=== PATIENT | male | born 1955 | race Caucasian/White ===

== ENCOUNTER → 2016-11-02 | Outpatient (CLI) | payer OTHER ==
[~2016-11-02] MED LIST: HYDR-3419 PO; NAPR1TAB9 PO
--- NOTE | 2016-11-02 11:11 | DIAGNOSTIC IMAGING REPORT ---
PET/CT HISTORY: Colorectal carcinoma. COLORECTAL CANCER TECHNIQUE: PET/CT was performed from the base of the skull through the pelvis following the intravenous administration of 14.1 mCi of F18-FDG. Non-contrast CT imaging was performed over the same range without breath-hold for attenuation correction of PET images and anatomic correlation, but not for primary interpretation as it is not of standard diagnostic quality. CT DOSE: COMPARISON: CT dated 09/21/2016. FINDINGS: HEAD AND NECK: There is no FDG-avid disease or significant lymphadenopathy in the imaged portions of the head and the neck. CHEST: There is no FDG-avid disease in the chest. There is no axillary, mediastinal, or hilar lymphadenopathy. There is no pleural or pericardial effusion. There is no air-space disease or suspicious lung nodule. ABDOMEN/PELVIS: Patient is status post left nephrectomy. In its place is a complex fluid/air pocket measuring 6.9 x 6.0 cm. This is slightly increased in the patient's prior CT exam. Demonstrated increase in peripheral metabolic activity characteristics with a right hand with SUVs extending to 5.5. Possibility of an abscess must be considered. Unremarkable activity characteristics are identified within the liver. Bowel activity is unremarkable. Right renal activity is noted. Postoperative foci of increased activity in the periumbilical region considered to be on a postoperative basis. Bowel pattern shows unremarkable activity characteristics. There is no significant abdominal pelvic or inguinal adenopathy. There is physiologic activity within the urinary bladder. MUSCULOSKELETAL: There is no FDG-avid or destructive bone lesion. IMPRESSION: 1. Peripheral metabolically active collection at the site of the patient's prior left nephrectomy bed. 2. Currently demonstrates anterior component, as well as increased peripheral metabolic activity suggestive of potential abscess. 3. Study otherwise is negative Electronically signed by: Percy Cardenas M.D. 11/02/2016 11:10 AM Dictated Date/Time: 11/02/2016 10:47 AM
== END | disposition home or self-care (01) ==
LOC: C.PET 07:43
PROVIDERS: ATTEND Internal Medicine Hematology & Oncology
DX: C18.9 Malignant neoplasm of colon, unspecified (principal); R93.5 Abnormal findings on diagnostic imaging of other abdominal regions, including retroperitoneum

== ENCOUNTER → 2016-11-03 | Day surgery (SDC) | payer OTHER ==
[2016-10-29 14:47] VITALS: BMI 27.0
[~2016-11-03] VITALS: Ht 175.3 cm; Wt 84.5 kg
[~2016-11-03] MED LIST changes: +ATROPINE SULFATE 0.1 MG/ML 5ML SYR IV PRN; +BACITRACIN 50000 UNIT VIAL ONE; +CEFAZOLIN SOD 1 GM VIAL ONE; +FENTANYL CITRATE INJ 50 MCG/1 ML 2 ML VIAL IV PRN; +FENTANYL CITRATE INJ 50 MCG/1 ML 2 ML VIAL ONE; +HYDROCODONE/ACETAMOPHEN 5/325MG TAB PO PRN; +KETAMINE HCL INJ 50 MG/ML 10 ML VIAL ONE; +LACTATED RINGER'S 1000ML 1,000 ML IV SCH; +LIDOCAINE HCL 1% 20 ML VIAL ONE; +LIDOCAINE HCL 2% 2 ML VIAL (20MG/ML) ONE; +MIDAZOLAM HCL 1 MG/ML 2ML VIAL ONE; +MoRPHine SULFATE 2 MG/ML CARP IV PRN; +ONDANSETRON INJ 2 MG/ML 2 ML VIAL IV PRN; +PROPOFOL IV EMULSION 10 MG/ML 20 ML VIAL IV ONE; +SODIUM CHLORIDE 0.9% INJ 10 ML VIAL ONE
[2016-11-03 10:07] VITALS: BP 134/80; PULSE 110; TEMP 36.7; O2SAT 99; Ht 175.3 cm; Wt 84.5 kg
[2016-11-03 10:25] LABS: HEMATOCRIT 32.5 % (42-52); MEAN CELL VOLUME 87.4 fL (80-100); MEAN CORPUSCULAR HEMOGLOBIN 29.3 pg (25-34); MEAN PLATELET VOLUME 8.8 fL (7.4-10.4); PLATELET COUNT 447 K/uL (130-400); RED BLOOD COUNT 3.72 M/uL (4.7-6.1); WHITE BLOOD COUNT 11.24 K/uL (4.8-10.8)
[2016-11-03 10:33] LABS: MEAN CORPUSCULAR HGB CONC 33.5 g/dl (32-36)
--- NOTE | 2016-11-03 11:21 | History and Physical ---
History & Physical Date Nov 03, 2016. 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 Additional History Hepatic Disease: No Endocrine Disorder: No Kidney Disease: No Hypertension: No Heart Disease: No Bleeding Tendencies: No Infectious Diseases: No Allergies Coded Allergies: No Known Allergies (Unverified , 11/03/16) Home Medications Scheduled PRN Naproxen (Aleve), 220 MG PO BID PRN for Pain Physical Examination Skin: warm/dry, no rash Eyes: normal inspection, EOMI, sclerae normal ENT: normal ENT inspection, pharynx normal Head: normocephalic, atraumatic Respiratory/Chest: lungs clear, normal breath sounds, no respiratory distress Cardiovascular: regular rate, rhythm, no edema, no murmur Abdomen / GI: + pertinent finding (midline abd incision all healed no cellulitis or drainage) Back: normal inspection Extremities: normal inspection, normal range of motion Neurologic/Psych: no motor/sensory deficits, alert, normal reflexes, oriented x 3 Addiitonal Comments: scar left ant chest from a-port past Diagnosis ureteral and colon cancer(metachronous) Plan of Treatment a-port placement right ant chest
--- NOTE | 2016-11-03 11:24 | Discharge Instructions ---
Discharge Instructions Visit Reason for Visit: Colon Caner Discharge Discharge Diagnosis / Problem: A-port Discharge Goals Goal(s): Improve disease control Activity Recommendations Activity Limitations: as noted below Shower/Bathe: tomorrow Anesthesia . Post Anesthesia Instructions: If you have had General Anesthesia or IV Sedation: * Do not drive today. * Resume driving when surgeon permits. * Do not make important decisions or sign legal documents today. * Call surgeon for: 1. Temperature elevations greater than 101 degrees F. 2. Uncontrollable pain. 3. Excessive bleeding. 4. Persistent nausea and vomiting. 5. Medication intolerance (nausea, vomiting or rash). * For nausea and vomiting use only clear liquids such as: tea, soda, bouillon until nausea subsides, then gradually increase diet as tolerated. * If you have any concerns or questions, call your surgeon's office. If physician is unavailable and it is an emergency, call 911 or go to the nearest emergency room. . Instructions / Follow-Up Instructions / Follow-Up Dr. Perez's office as planned or as needed, call [phone] for any questions Diet Recommendations Recommended Home Diet: no limitations Pending Studies Studies pending at discharge: no Medical Emergencies . Who to Call and When: Medical Emergencies: If at any time you feel your situation is an emergency, please call 911 immediately. . Non-Emergent Contact Non-Emergency issues call your: Surgeon Call Non-Emergent contact if: you have a fever, temperature is above 101.5, your pain is not controlled, wound has increased redness . . "Provider Documentation" section prepared by Gaston Rojas.
--- NOTE | 2016-11-03 12:26 | [facility] Post Operative Brief Note ---
Immediate Operative Summary Operative Date Nov 03, 2016. Pre-Operative Diagnosis Need for IV access for chemo Post-Operative Diagnosis Same Procedure(s) Performed Insertion of A-Port Right Subclavian Vein Surgeon Dr Perez Estimated Blood Loss 3cc Findings as preop Specimens none Anesthesia 1%xyl local(8cc) and iv sedation
--- NOTE | 2016-11-03 12:53 | OPERATIVE REPORT ---
DATE OF OPERATION: 11/03/2016 PREOPERATIVE DIAGNOSIS: Need of chemotherapy for colon and ureteral cancer. POSTOPERATIVE DIAGNOSIS: Same. PROCEDURE: A-port placement, MRI compatible through right subclavian. SURGEON: Dr. Perez. OPERATION AND FINDINGS: SUMMARY: The patient's right chest area and neck was prepped with Betadine scrubbing solution and properly draped. Systemic antibiotics was given. We used the subclavian on the right because the patient had an A-Port placed years ago on the left. Therefore, we used infiltrated 1% Xylocaine without epinephrine. We used a total of about 8 mL throughout the procedure, first to infiltrate the tip of the subcutaneous tissue at the angle of the clavicle where percutaneously we accessed the vein without any problem, guidewire followed. Actually fluoroscopically we could see what is going up towards the neck area; therefore fluoroscopically we were positioned down in the superior vena cava. At this point we then made a counter incision at about 2 inches below that using more local anesthetic, probably 1-1/2 to 2 inches long sufficient enough to create a pocket for the MRI compatible port. We tested the reservoir. Denuded some of the subcutaneous fatty tissue so we could palpate the prongs of the MRI port easily. At this point, the guidewire that we had positioned percutaneously we brought it out into this other incision. Fluoroscopically, the guidewire still in the superior vena cava. We using a 7-Cambodian introducer followed by the catheter that we went on and visualized it was going into the right atrium inferiorly. At this point we brought out the black bolster and placed it in the catheter and cut the catheter sufficiently enough that I was in the right atrium, connected to the reservoir, fastened the black bolster, aspirated and flushed easily. We then placed it in the pocket that we had made, sutured it in place and aspirated and flushed through the skin however at this time it seemed likely was not easily aspirating. Therefore we took down the system and cut the catheter another 2 cm or so, figuring it was probably too much in the atrium and repositioned the black bolster and did the same maneuvers, fastened it again, aspirated and flushed easily at this time. We repositioned in the previously made pocket, sutured in place 3-0 nylon areas and 2-0 Dexon subcutaneously and Steri-Strips applied plus 4-0 Monocryl subcuticular. At the end the procedure, we aspirated and flushed easily without any problem. The procedure was tolerated well by the patient. Estimated blood loss approximately 3 mL. The patient was taken to recovery room in good condition. I attest to the content of the Intraoperative Record and any orders documented therein. Any exceptio ns are noted below.
--- NOTE | 2016-11-03 12:56 | DIAGNOSTIC IMAGING REPORT ---
CHEST ONE VIEW PORTABLE CLINICAL HISTORY: port placement tube position COMPARISON STUDY: 09/29/2016 FINDINGS: Right-sided central catheter placed at the juncture of the superior vena cava and right atrium. No evidence of pneumothorax. Lungs appear clear. IMPRESSION: Central catheter placed at the juncture of the superior vena cava and right atrium. No evidence pneumothorax. Electronically signed by: Percy Cardenas M.D. 11/03/2016 12:55 PM Dictated Date/Time: 11/03/2016 12:54 PM
[2016-11-03 13:00] VITALS: BP 106/68; PULSE 93; TEMP 37.1; O2SAT 95
[2016-11-03 13:30] VITALS: BP 115/70; PULSE 88; TEMP 37.1; O2SAT 95
--- NOTE | 2016-11-03 13:48 | Anesthesiology Progress Note ---
Anesthesia Post Op Note Date & Time Nov 03, 2016 at 13:49 Vital Signs Pain Intensity: 1 Vital Signs Past 12 Hours Date Time Temp Pulse Resp B/P Pulse Ox O2 Delivery O2 Flow Rate FiO2 11/03/16 13:00 37.1 93 18 106/68 95 11/03/16 12:50 36.7 94 18 106/68 96 Room Air 11/03/16 12:40 90 17 104/63 96 Room Air 11/03/16 12:30 36.6 96 16 113/73 99 Room Air 11/03/16 10:07 36.7 110 18 134/80 99 Room Air Notes Mental Status: alert / awake / arousable, participated in evaluation Pt Amnestic to Procedure: Yes Nausea / Vomiting: adequately controlled Pain: adequately controlled Airway Patency, RR, SpO2: stable & adequate BP & HR: stable & adequate Hydration State: stable & adequate Anesthetic Complications: no major complications apparent
== END | disposition home or self-care (01) ==
LOC: C.ACU 09:46
PROVIDERS: ATTEND Surgery
DX: C18.9 Malignant neoplasm of colon, unspecified (principal); C66.2 Malignant neoplasm of left ureter

== ENCOUNTER → 2016-11-07 | Outpatient (CLI) | payer OTHER ==
[~2016-11-07] MED LIST changes: -ATROPINE SULFATE 0.1 MG/ML 5ML SYR IV PRN; -BACITRACIN 50000 UNIT VIAL ONE; -CEFAZOLIN SOD 1 GM VIAL ONE; -FENTANYL CITRATE INJ 50 MCG/1 ML 2 ML VIAL IV PRN; -FENTANYL CITRATE INJ 50 MCG/1 ML 2 ML VIAL ONE; -HYDROCODONE/ACETAMOPHEN 5/325MG TAB PO PRN; -KETAMINE HCL INJ 50 MG/ML 10 ML VIAL ONE; -LACTATED RINGER'S 1000ML 1,000 ML IV SCH; -LIDOCAINE HCL 1% 20 ML VIAL ONE; -LIDOCAINE HCL 2% 2 ML VIAL (20MG/ML) ONE; -MIDAZOLAM HCL 1 MG/ML 2ML VIAL ONE; -MoRPHine SULFATE 2 MG/ML CARP IV PRN; -ONDANSETRON INJ 2 MG/ML 2 ML VIAL IV PRN; -PROPOFOL IV EMULSION 10 MG/ML 20 ML VIAL IV ONE; -SODIUM CHLORIDE 0.9% INJ 10 ML VIAL ONE
[2016-11-07 13:01] LABS: BASO % 0.3 %; BASO ABS # 0.03 K/uL (0-0.2); COMPLETE YES; EOS % 1.6 %; HEMATOCRIT 32.6 % (42-52); IG% 0.7 %; LYMPH % 18.4 %; LYMPH ABS # 1.69 K/uL (1.2-3.4); MEAN CELL VOLUME 86.9 fL (80-100); MEAN CORPUSCULAR HEMOGLOBIN 28.8 pg (25-34); MEAN CORPUSCULAR HGB CONC 33.1 g/dl (32-36); MONO % 10.2 %; NEUT % 68.8 %; PLATELET COUNT 527 K/uL (130-400); RED BLOOD COUNT 3.75 M/uL (4.7-6.1); WHITE BLOOD COUNT 9.18 K/uL (4.8-10.8)
[2016-11-07 13:13] LABS: ALT/SGPT 57 U/L (12-78); BLOOD UREA NITROGEN 11 mg/dl (7-18); BUN/CREATININE RATIO 8.8 (10-20); CALCIUM 9.9 mg/dl (8.5-10.1); CARBON DIOXIDE 22 mmol/L (21-32); CHLORIDE 103 mmol/L (98-107); GLUCOSE 141 mg/dl (70-99); POTASSIUM 4.1 mmol/L (3.5-5.1); SODIUM 137 mmol/L (136-145)
[2016-11-07 13:16] LABS: ALKALINE PHOSPHATASE 118 U/L (45-117); AST/SGOT 26 U/L (15-37)
== END | disposition home or self-care (01) ==
LOC: C.LABPVFM 10:29
PROVIDERS: ATTEND Surgery
DX: C18.9 Malignant neoplasm of colon, unspecified (principal)

== ENCOUNTER → 2016-12-04 | Outpatient (CLI) | payer OTHER ==
[2016-12-04 12:23] LABS: BASO % 0.3 %; BASO ABS # 0.02 K/uL (0-0.2); COMPLETE YES; EOS % 1.5 %; HEMATOCRIT 30.3 % (42-52); IG% 2.6 %; LYMPH % 26.8 %; LYMPH ABS # 1.96 K/uL (1.2-3.4); MEAN CELL VOLUME 88.1 fL (80-100); MEAN CORPUSCULAR HEMOGLOBIN 29.1 pg (25-34); MEAN PLATELET VOLUME 9.3 fL (7.4-10.4); MONO % 17.1 %; NEUT % 51.7 %; PLATELET COUNT 265 K/uL (130-400); RED BLOOD COUNT 3.44 M/uL (4.7-6.1); WHITE BLOOD COUNT 7.31 K/uL (4.8-10.8)
[2016-12-04 12:34] LABS: ALT/SGPT 23 U/L (12-78); AST/SGOT 8 U/L (15-37); BLOOD UREA NITROGEN 16 mg/dl (7-18); BUN/CREATININE RATIO 10.9 (10-20); CALCIUM 9.3 mg/dl (8.5-10.1); CARBON DIOXIDE 26 mmol/L (21-32); CHLORIDE 103 mmol/L (98-107); GLUCOSE 180 mg/dl (70-99); MAGNESIUM 1.5 mg/dl (1.8-2.4); SODIUM 137 mmol/L (136-145)
[2016-12-04 12:37] LABS: ALB/GLOB RATIO 0.7 (0.9-2); ALKALINE PHOSPHATASE 151 U/L (45-117)
== END | disposition home or self-care (01) ==
LOC: C.LABPVFM 10:17
PROVIDERS: ATTEND Internal Medicine Hematology & Oncology
DX: C18.6 Malignant neoplasm of descending colon (principal); C66.2 Malignant neoplasm of left ureter

== ENCOUNTER → 2017-02-22 | Outpatient (CLI) | payer OTHER ==
[~2017-02-22] MED LIST changes: +ATV/1 PO; +HYDR-5806 PO; +ZOLP10TA6 PO
== END | disposition home or self-care (01) ==
LOC: C.PATHSPEC 16:42
PROVIDERS: ATTEND Urology
DX: C68.9 Malignant neoplasm of urinary organ, unspecified (principal)

== ENCOUNTER → 2017-03-19 | Outpatient (CLI) | payer OTHER ==
[~2017-03-19] MED LIST changes: -ATV/1 PO; -HYDR-5806 PO; +OPTIRAY 320 IV PRN; -ZOLP10TA6 PO
--- NOTE | 2017-03-19 14:22 | DIAGNOSTIC IMAGING REPORT ---
CHEST CT WITH CONTRAST CT DOSE: 1248.72 mGy.cm HISTORY: Colon carcinoma COLON CA TECHNIQUE: Multiaxial CT images of the chest were performed following the intravenous administration of contrast. COMPARISON: None. FINDINGS: The lungs are clear. The mediastinal vascular structures are within normal limits. No mediastinal or hilar lymphadenopathy. No pleural effusion or pneumothorax. Limited views of the upper abdomen demonstrate a normal liver and spleen. IMPRESSION: No significant abnormality identified within the chest. Electronically signed by: Percy Cardenas M.D. 03/19/2017 2:21 PM Dictated Date/Time: 03/19/2017 2:19 PM
--- NOTE | 2017-03-19 14:35 | DIAGNOSTIC IMAGING REPORT ---
ABDOMEN AND PELVIS CT WITH IV AND ORAL CONTRAST CT DOSE: HISTORY: Colon cancer. TECHNIQUE: Multiaxial CT images of the abdomen and pelvis were performed following the use of intravenous and oral contrast. COMPARISON STUDY: Abdomen and pelvis CT 09/21/2016. FINDINGS: Bilateral L5 spondylolysis with associated grade I anterolisthesis. No suspicious lytic or blastic osseous lesions. Old, healed right lateral rib fracture. The liver, spleen, adrenal glands, pancreas, and gallbladder are unremarkable. An IVC filter is noted. Mild atherosclerotic plaque within the normal caliber abdominal aorta. The right kidney enhances normally. There is a punctate stone within the right kidney. Mild bladder wall thickening. Tiny fat-containing left inguinal hernia. Prior rectosigmoid anastomosis. Mild thickening and pericolonic fat stranding at and immediately distal to the rectosigmoid anastomosis. This has improved. There is also focal thickening within the mid descending colon which abuts the left anterior psoas muscle. This is in close proximity to the nephrectomy bed fluid collection. There may be a small fistula between the nephrectomy bed fluid collection in the descending colon. Interval decrease in size of the nephrectomy bed fluid collection. This currently measures 3.4 x 1.6 cm. This demonstrates a thickened enhancing wall. There is mild inflammatory change surrounding this fluid collection. There may be 2 adjacent fistulas which extend from the nephrectomy bed fluid collection to the body of the stomach. The tail the pancreas also abuts the superior border of the fluid collection. There is fat stranding within the left upper quadrant omentum. Prior midline incision. Small fat-containing midline ventral hernia. No significant retroperitoneal lymphadenopathy. IMPRESSION: 1. Significant decrease in size in the left nephrectomy bed fluid collection which now measures approximately 3.4 x 1.6 cm. This demonstrates a thickened enhancing wall and mild surrounding inflammatory change. There is suggestion of a few small fistulas extending to the body of the stomach and the adjacent descending colon. The pancreatic tail also abuts the superior border of the small fluid collection. This fluid collection could represent a combination of postoperative change and a resolving abscess. Continued follow-up is recommended to ensure complete resolution. 2. Mild thickening and pericolonic inflammatory change at the rectosigmoid anastomosis. This has slightly improved. 3. Fat stranding within the left upper quadrant omentum. This favors fat necrosis from the postoperative change. 4. Right-sided nephrolithiasis. No hydronephrosis. Electronically signed by: Rufino Farooq M.D. 03/19/2017 2:33 PM Dictated Date/Time: 03/19/2017 2:21 PM
== END | disposition home or self-care (01) ==
LOC: C.CTS 12:03
PROVIDERS: ATTEND Internal Medicine Hematology & Oncology
DX: C18.9 Malignant neoplasm of colon, unspecified (principal); N20.0 Calculus of kidney

== ENCOUNTER → 2017-06-01 | Outpatient (CLI) | payer OTHER ==
[~2017-06-01] MED LIST changes: -HYDR-3419 PO; -OPTIRAY 320 IV PRN
--- NOTE | 2017-06-01 10:23 | DIAGNOSTIC IMAGING REPORT ---
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 Images are reviewed in the axial, sagittal, and coronal planes. IV contrast was not administered for this examination. A dose lowering technique was utilized adhering to the principles of ALARA. CT DOSE: 1176.97 mGy.cm FINDINGS: Lower chest: The heart is normal in size and configuration, without pericardial effusion. The lung bases and pleural spaces are clear. Liver: The unenhanced liver is normal in size, contour, and attenuation. There is no intrahepatic biliary ductal dilatation. Gallbladder: Unremarkable. Spleen: Normal in size and attenuation. Pancreas: Unremarkable. Adrenal glands: Unremarkable. Kidneys: The patient is status post a left nephrectomy. There is a persistent 3 mm right renal calculus. There is no right-sided hydronephrosis. No ureteral or bladder calculi are visualized. There is persistent abnormal thickening of the left psoas. A left nephrectomy bed collection is again suspected. This is more difficult to discern due to the lack of intravenous contrast. There is again a suggestion of a fistula to the stomach. An additional fistula to the descending colon cannot be excluded. Bowel: There are no transition zones to indicate bowel obstruction. There is mild infiltration of the perisigmoid colonic fat. Since the prior study, the patient has developed a ventral hernia which contains a small loop of small bowel. Peritoneum: There is no intraperitoneal free air or abdominal ascites. There are small fat-containing inguinal hernias. Vasculature: The abdominal aorta is normal in course and caliber. There is indwelling IVC filter. Adenopathy: None. Pelvic viscera: The prostate is mildly enlarged. Skeletal structures: No destructive osseous lesions are seen. There is bilateral L5 spondylolysis. IMPRESSION: 1. Persistent left nephrectomy bed fluid collection. A virus is limited given the lack of intravenous contrast. There is again suggestion of fistulous tract to the stomach and descending colon. 2. Persistent fat stranding within the left upper quadrant omentum, likely secondary to fatty process 3. Mild infiltration of the perisigmoid fat 4. Interval development of a ventral hernia containing small bowel. This does not currently resulting in obstructive changes 5. No evidence of bowel obstruction. No evidence of free air 6. 3 mm right renal calculus. No ureteral or bladder calculi identified. Electronically signed by: Moe Berrios M.D. 06/01/2017 10:22 AM Dictated Date/Time: 06/01/2017 10:07 AM
== END | disposition home or self-care (01) ==
LOC: C.CTS 09:46
PROVIDERS: ATTEND Urology
DX: C68.9 Malignant neoplasm of urinary organ, unspecified (principal); N20.0 Calculus of kidney

== ENCOUNTER → 2017-08-23 | Outpatient (CLI) | payer OTHER ==
[~2017-08-23] MED LIST changes: +ATV/1 PO; +HYDR-5806 PO; -NAPR1TAB9 PO; +ZOLP10TA6 PO
[2017-08-23 12:42] LABS: BASO % 0.8 %; BASO ABS # 0.05 K/uL (0-0.2); COMPLETE YES; EOS % 2.6 %; IG% 0.3 %; LYMPH % 27.1 %; LYMPH ABS # 1.76 K/uL (1.2-3.4); MEAN CELL VOLUME 94.4 fL (80-100); MEAN CORPUSCULAR HEMOGLOBIN 32.2 pg (25-34); MEAN CORPUSCULAR HGB CONC 34.1 g/dl (32-36); MEAN PLATELET VOLUME 9.7 fL (7.4-10.4); MONO % 8.9 %; NEUT % 60.3 %; PLATELET COUNT 213 K/uL (130-400); RED BLOOD COUNT 4.13 M/uL (4.7-6.1); WHITE BLOOD COUNT 6.49 K/uL (4.8-10.8)
[2017-08-23 14:09] LABS: BLOOD UREA NITROGEN 17 mg/dl (7-18); CREATININE 1.66 mg/dl (0.60-1.40); GLUCOSE 131 mg/dl (70-99)
[2017-08-23 14:10] LABS: ALT/SGPT 23 U/L (12-78); AST/SGOT 14 U/L (15-37); BUN/CREATININE RATIO 10.2 (10-20); CALCIUM 8.7 mg/dl (8.5-10.1); CARBON DIOXIDE 29 mmol/L (21-32); CHLORIDE 102 mmol/L (98-107); POTASSIUM 4.2 mmol/L (3.5-5.1); SODIUM 136 mmol/L (136-145)
[2017-08-23 14:12] LABS: ALB/GLOB RATIO 0.9 (0.9-2); ALKALINE PHOSPHATASE 134 U/L (45-117)
== END | disposition home or self-care (01) ==
LOC: C.LABPVFM 09:23
PROVIDERS: ATTEND Internal Medicine Hematology & Oncology
DX: C18.6 Malignant neoplasm of descending colon (principal); C66.2 Malignant neoplasm of left ureter

== ENCOUNTER → 2017-09-16 | Outpatient (CLI) | payer OTHER ==
[2017-09-16 17:00] LABS: URINE APPEARANCE CLEAR (CLEAR); URINE BILIRUBIN NEG (NEG); URINE COLOR YELLOW; URINE NITRITE NEG (NEG); URINE PROTIEN/CREAT RATIO 0.1 (0-0.2); URINE SPECIFIC GRAVITY 1.022 (1.000-1.030); URINE TOTAL PROTEIN 18.9 mg/dl (0-11.9); UROBILINOGEN NEG (NEG); ZZUR CULT IF INDIC CLEAN CATCH NO
[2017-09-16 17:04] LABS: MANUAL MICROSCOPIC REQUIRED? NO; REVIEW REQ? NO
== END | disposition home or self-care (01) ==
LOC: C.LAB1850 14:42
PROVIDERS: ATTEND Internal Medicine Nephrology
DX: N28.9 Disorder of kidney and ureter, unspecified (principal)

== ENCOUNTER → 2017-09-22 | Day surgery (SDC) | payer OTHER ==
[2017-08-03 09:53] VITALS: BMI 27.0
[2017-09-15 10:34] VITALS: BMI 27.0
[~2017-09-22] VITALS: Ht 175.3 cm; Wt 84.5 kg
[~2017-09-22] MED LIST changes: +FINASTERIDE PO; +HYDR-3419 PO; +LIDOCAINE HCL 2% 2 ML VIAL (20MG/ML) ONE; +OXYC-57 PO; +PROPOFOL IV EMULSION 10 MG/ML 20 ML VIAL IV ONE; +SODIUM CHLORIDE 0.9% 500ML 500 ML IV ONE; +[UNRECOGNIZED DRUG - OTHER] NAE
[2017-09-22 08:04] VITALS: Ht 175.3 cm; Wt 84.5 kg
--- NOTE | 2017-09-22 08:44 | Endo History and Physical ---
History & Physical Date of Service: Sep 22, 2017. Chief Complaint: HISTORY OF COLON CANCER Referring Physician: DR MO History of Present Illness personal history of colon cancer. Past Surgical History Hx Cardiac Surgery: No Hx Internal Defibrillator: No Hx Pacemaker: No Hx Abdominal Surgery: Yes (APPY, HERNIA REPAIR WITH MESH) Hx of Implantable Prosthesis: No Hx Post-Op Nausea and Vomiting: No Hx Cancer Surgery: Yes (COLON RESECTION X2, LEFT NEPHRECTOMY) Hx Thoracic Surgery: No Hx Orthopedic: Yes (LT RCR, JUAN MIGUEL FILTER) Hx Urinary Tract Surgery: Yes (LT URETER STENT, RT CHEST PORT PLACEMENT) Family History Colon CA, Esophogeal CA Social History Smoking Status: Former Smoker Hx Substance Use: Yes (SEE MED LIST) Hx Alcohol Use: Yes (OCCASIONAL - "SOMETIMES I HAVE A BEER, SOMETIMES I HAVE 6 ") Allergies Coded Allergies: No Known Allergies (Unverified , 09/22/17) Current Medications Reported Home Medications Medications Dose Route/Sig Max Daily Dose Days Date Category Ativan (Lorazepam) 1 Mg Tab 1 Mg PO TID PRN 08/03/17 Reported Zolpidem Tartrate 10 Mg Tab 1 Tab PO HS 08/03/17 Reported Hydrocodone Bitartrate/AC 10-325 mg (Hydrocodone-Acetaminophen) 1 Tab Tab 0.5 Tab PO Q4H PRN 08/03/17 Reported Vital Signs Weight (Kilograms): 84.55 Height (Feet): 5 Height (Inches): 9 Date Time Temp Pulse Resp B/P (MAP) Pulse Ox O2 Delivery O2 Flow Rate FiO2 09/22/17 08:13 36.6 80 18 120/84 (96) 99 Room Air Physical Exam General Appearance: no apparent distress Respiratory/Chest: Auscultation: breath sounds normal Cardiovascular: Heart Auscultation: RRR Abdomen: Inspection & Palpation: soft Liver: non-tender Assessment and Plan stable for colonoscopy
--- NOTE | 2017-09-22 09:13 | Discharge Instructions ---
Endoscopy Patient Instructions Date / Procedure(s) Performed Sep 22, 2017. Colonoscopy Allergy Information Coded Allergies: No Known Allergies (Unverified , 09/22/17) Discharge Date / Findings Sep 22, 2017. small colon polyps Provider Instructions Activity Restrictions - No exercising or heavy lifting for 24 hours. - Do not drink alcohol the day of the procedure. - Do not drive a car or operate machinery until the day after the procedure. - Do not make any important decisions or sign important papers in 24 hours after the procedure. Following Day: - Return to full activity which may include returning to work/school. Diet Start your diet with liquids and light foods (jello, soup, juice, toast). Then eat your usual diet if not nauseated. Treatment For Common After Affects For mild abdominal pain, bloating, or excessive gas: - Rest - Eat lightly - Lie on right side Follow-Up Information Follow-up with DR MO as scheduled Anesthesia Information What You Should Know You have had a procedure that required some medicine to reduce anxiety and discomfort. This treatment is called moderate sedation. After receiving the treatment, you may be sleepy, but you will be able to breathe on your own. The effects of the treatment may last for several hours. Follow these instructions along with Activity/Diet recommendations noted above: * Do NOT do anything where dizziness or clumsiness would be dangerous. * Rest quietly at home today, then you can be up and about tomorrow. * Have a responsible person stay with you the rest of today. * You may have had an I.V. today. If so, you may take the dressing off later today. Recommendations Call your doctor if: * Trouble breathing * Continuous vomiting for more than 24 hours * Temperature above 101 degrees * Severe abdominal pain or bloating * Pain not relieved by pain medicine ordered * There is increased drainage or redness from any incision * A large amount of rectal bleeding greater than 2-3 tablespoons. (If you had a polyp/s removed or have hemorrhoids, a small amount of blood - from the rectum is to be expected.) * You have any unanswered questions or concerns. IN THE EVENT OF A SERIOUS EMERGENCY, GO TO THE NEAREST EMERGENCY ROOM Your discharge instructions were prepared by provider Reji Grimm. Patient Instructions Signature Page Jan Alejandro Patient (or Guardian) Signature/Date: I have read and understand the instructions given to me by my caregivers. Caregiver/RN/Doctor Signature/Date: The above-named patient and/or guardian has received patient instructions on this date. + Original Patient Signature Page (only) stays with chart. Please make copy for patient.
--- NOTE | 2017-09-22 09:23 | Anesthesiology Progress Note ---
Anesthesia Post Op Note Date & Time Sep 22, 2017 at 09:23 Vital Signs Pain Intensity: 2 Vital Signs Past 12 Hours Date Time Temp Pulse Resp B/P (MAP) Pulse Ox O2 Delivery O2 Flow Rate FiO2 09/22/17 09:10 92 18 105/77 (86) 97 Room Air 09/22/17 08:13 36.6 80 18 120/84 (96) 99 Room Air Notes Mental Status: alert / awake / arousable, participated in evaluation Pt Amnestic to Procedure: Yes Nausea / Vomiting: adequately controlled Pain: adequately controlled Airway Patency, RR, SpO2: stable & adequate BP & HR: stable & adequate Hydration State: stable & adequate Anesthetic Complications: no major complications apparent
[2017-09-22 09:42] VITALS: BP 137/95; PULSE 65; O2SAT 98
--- NOTE | 2017-09-22 10:15 | GI REPORT ---
Procedure Date: 09/22/2017 8:21 AM Procedure: Colonoscopy Indications: Personal history of malignant neoplasm of the colon Medicines: See the Anesthesia note for documentation of the administered medications Complications: No immediate complications. Estimated Blood Loss: Estimated blood loss was minimal. Procedure: Pre-Anesthesia Assessment: - Prior to the procedure, a History and Physical was performed, and patient medications, allergies and sensitivities were reviewed. The patient's tolerance of previous anesthesia was reviewed. - The risks and benefits of the procedure and the sedation options and risks were discussed with the patient. All questions were answered and informed consent was obtained. - Patient identification and proposed procedure were verified prior to the procedure by the physician and the nurse. The procedure was verified in the pre-procedure area. - Pre-procedure physical examination revealed no contraindications to sedation. - After reviewing the risks and benefits, the patient was deemed in satisfactory condition to undergo the procedure. After I obtained informed consent, the scope was passed under direct vision. Throughout the procedure, the patient's blood pressure, pulse, and oxygen saturations were monitored continuously. The scope was introduced through the anus and advanced to the terminal ileum, with identification of the appendiceal orifice and IC valve. The colonoscopy was performed without difficulty. The patient tolerated the procedure well. The quality of the bowel preparation was good. Findings: The perianal and digital rectal examinations were normal. A 3 mm polyp was found at 70 cm proximal to the anus. The polyp was sessile. The polyp was removed with a cold snare. Resection and retrieval were complete. Verification of patient identification for the specimen was done by the physician and nurse using the patient's name and medical record number. Estimated blood loss was minimal. A 4 mm polyp was found at 30 cm proximal to the anus. The polyp was sessile. The polyp was removed with a cold snare. Resection and retrieval were complete. Verification of patient identification for the specimen was done by the physician and nurse using the patient's name and medical record number. Estimated blood loss was minimal. There was evidence of a prior end-to-side colo-colonic anastomosis in the sigmoid colon. This was patent and was characterized by healthy appearing mucosa. No additional abnormalities were found on retroflexion. Impression: - One 3 mm polyp at 70 cm proximal to the anus, removed with a cold snare. Resected and retrieved. - One 4 mm polyp at 30 cm proximal to the anus, removed with a cold snare. Resected and retrieved. - Patent end-to-side colo-colonic anastomosis, characterized by healthy appearing mucosa. Recommendation: - Await pathology results. - Discharge patient to home. Reji Grimm M.D. Reji Grimm MD 09/22/2017 9:12:52 AM This report has been signed electronically. Note Initiated On: 09/22/2017 8:21 AM I attest to the content of the Intraoperative Record and orders documented therein, exceptions below
== END | disposition home or self-care (01) ==
LOC: C.GI 07:36
PROVIDERS: ATTEND Internal Medicine Gastroenterology
DX: Z12.11 Encounter for screening for malignant neoplasm of colon (principal); Z85.038 Personal history of other malignant neoplasm of large intestine; K62.0 Anal polyp; Z90.89 Acquired absence of other organs; Z80.0 Family history of malignant neoplasm of digestive organs; Z87.891 Personal history of nicotine dependence; I25.10 Atherosclerotic heart disease of native coronary artery without angina pectoris; Z86.718 Personal history of other venous thrombosis and embolism; K21.9 Gastro-esophageal reflux disease without esophagitis; E11.9 Type 2 diabetes mellitus without complications; N18.9 Chronic kidney disease, unspecified; Z80.51 Family history of malignant neoplasm of kidney; Z92.21 Personal history of antineoplastic chemotherapy; Z90.5 Acquired absence of kidney; F41.9 Anxiety disorder, unspecified

== ENCOUNTER → 2017-10-01 | Outpatient (CLI) | payer OTHER ==
[~2017-10-01] MED LIST changes: -FINASTERIDE PO; -HYDR-3419 PO; -LIDOCAINE HCL 2% 2 ML VIAL (20MG/ML) ONE; -OXYC-57 PO; -PROPOFOL IV EMULSION 10 MG/ML 20 ML VIAL IV ONE; -SODIUM CHLORIDE 0.9% 500ML 500 ML IV ONE; -[UNRECOGNIZED DRUG - OTHER] NAE
[2017-10-01 11:19] LABS: BASO ABS # 0.06 K/uL (0-0.2); EOS % 2.2 %; EOS ABS # 0.13 K/uL (0-0.5); HEMATOCRIT 38.1 % (42-52); HEMOGLOBIN 13.1 g/dL (14.0-18.0); IG# 0.01 K/uL (0.00-0.02); LYMPH % 34.9 %; LYMPH ABS # 2.02 K/uL (1.2-3.4); MEAN CELL VOLUME 92.7 fL (80-100); MEAN CORPUSCULAR HEMOGLOBIN 31.9 pg (25-34); MEAN CORPUSCULAR HGB CONC 34.4 g/dl (32-36); MEAN PLATELET VOLUME 9.6 fL (7.4-10.4); MONO ABS # 0.52 K/uL (0.11-0.59); NEUT % 52.7 %; NEUT ABS # 3.05 K/uL (1.4-6.5); PLATELET COUNT 199 K/uL (130-400); RED CELL DISTRIBUTION WIDTH CV 12.9 % (11.5-14.5); RED CELL DISTRIBUTION WIDTH SD 43.4 fL (36.4-46.3); WHITE BLOOD COUNT 5.79 K/uL (4.8-10.8)
[2017-10-01 13:32] LABS: BLOOD UREA NITROGEN 24 mg/dl (7-18); CALCIUM 8.7 mg/dl (8.5-10.1); CARBON DIOXIDE 24 mmol/L (21-32); CREATININE 1.65 mg/dl (0.60-1.40); GLUCOSE 127 mg/dl (70-99); SODIUM 135 mmol/L (136-145)
== END | disposition home or self-care (01) ==
LOC: C.LAB 10:24
PROVIDERS: ATTEND Urology
DX: C66.9 Malignant neoplasm of unspecified ureter (principal); N40.1 Benign prostatic hyperplasia with lower urinary tract symptoms

== ENCOUNTER 2017-10-11 11:53 | Day surgery (SDC) | payer OTHER ==
[2017-09-27 10:27] VITALS: BMI 27.0
[~2017-10-11] VITALS: Ht 175.3 cm; Wt 84.5 kg
[~2017-10-11 11:53] MED LIST changes: +LACTATED RINGER'S 1000ML 1,000 ML IV SCH
[2017-10-11 12:35] VITALS: BP 146/79; PULSE 86; TEMP 36.8; O2SAT 97; Ht 175.3 cm; Wt 84.5 kg
[2017-10-11] MEDS ORDERED: [UNRECOGNIZED DRUG - OTHER] NAE (12:51)
[2017-10-11] MEDS ORDERED: EpHEDrine SULFATE INJ 50 MG/ML AMP IV PRN ×2 (13:00→15:30)
[2017-10-11] MEDS ORDERED: NALOXONE HCL 0.4 MG/1 ML VIAL/CARP IV PRN (13:00)
[2017-10-11] MEDS ORDERED: MEPERIDINE HCL 25 MG/ML CARP IV PRN (13:00)
[2017-10-11] MEDS ORDERED: HYDROmorphone INJ 2 MG/ML SYR/VIAL IV PRN (13:00)
[2017-10-11] MEDS ORDERED: FENTANYL CITRATE INJ 50 MCG/1 ML 2 ML VIAL IV PRN ×2 (13:00→15:30)
[2017-10-11] MEDS ORDERED: PHENYLEPHRINE 100MCG/ML 5ML SYR IV PRN (13:00)
[2017-10-11] MEDS ORDERED: ATROPINE SULFATE 0.1 MG/ML 5ML SYR IV PRN ×2 (13:00→15:30)
[2017-10-11] MEDS ORDERED: FLUMAZENIL 0.1 MG/1 ML 10 ML VIAL IV PRN (13:00)
[2017-10-11] MEDS ORDERED: LABETALOL HCL IV 5 MG/ML 20ML IV PRN (13:00)
[2017-10-11] MEDS ORDERED: ONDANSETRON INJ 2 MG/ML 2 ML VIAL IV PRN ×2 (13:00→15:30)
--- NOTE | 2017-10-11 15:03 | History & Physical Bridge Note ---
H&P Re-Evaluation Bridge Note: I have examined the patient, reviewed the History & Physical and in the interval since the performance of the History & Physical I have noted the following changes of clinical significance: No changes noted
[2017-10-11] MEDS ORDERED: LIDOCAINE HCL 2% 2 ML VIAL (20MG/ML) ONE (15:25)
[2017-10-11] MEDS ORDERED: FENTANYL CITRATE INJ 50 MCG/1 ML 2 ML VIAL ONE (15:25)
[2017-10-11] MEDS ORDERED: PROPOFOL IV EMULSION 10 MG/ML 20 ML VIAL IV ONE (15:25)
[2017-10-11] MEDS ORDERED: MIDAZOLAM HCL 1 MG/ML 2ML VIAL ONE (15:25)
[2017-10-11] MEDS ORDERED: PROMETHAZINE HCL INJ 6.25 MG in SODIUM CHLORIDE 0.9% 50ML 50 ML IV PRN (15:30)
[2017-10-11] MEDS ORDERED: SODIUM CHLORIDE 0.9% 1000ML 1,000 ML IV SCH (15:48)
--- NOTE | 2017-10-11 15:50 | [facility] Operative Report ---
Operative Report Operative Date Oct 11, 2017. Pre-Operative Diagnosis history of transitional cell carcinoma Post-Operative Diagnosis same Procedure(s) Performed cystoscopy Surgeon Dr. Jayme Corcoran Estimated Blood Loss 0ml Findings Healthy appearing bladder Specimens no specimens per surgeon Drains none Anesthesia MAC Complication(s) None Disposition Recovery Room / PACU (stable) Indications Hx of L upper tract TCC s/p NU - here for surveillance cysto Description of Procedure Cystoscoped advanced per urethra without difficulty. No evidence of stricture disease. Moderately enlarged prostate. Moderately trabeculated bladder without evidence of disease recurrence within the bladder. Surgically removed L UO. Clear efflux from the R UO. Tolerated the procedure well. Reversed from anesthesia and taken to the PACU in stable condition. I attest to the content of the Intraoperative Record and any orders documented therein. Any exceptions are noted below.
--- NOTE | 2017-10-11 15:52 | Discharge Instructions ---
Discharge Instructions Date of Service Oct 11, 2017. Admission Reason for Admission: Benign Prostate Hyperplasia, Ureteral Cancer Discharge Discharge Diagnosis / Problem: hx of TCC (left ureter) Discharge Goals Goal(s): Decrease discomfort, Improve function, Increase independence, Improve disease control Activity Recommendations Activity Limitations: resume your previous activity Lifting Limitations: none Exercise/Sports Limitations: none May Resume Sexual Activity: when tolerated Shower/Bathe: no limitations Driving or Machine Use: resume 1 day after discharge . Instructions / Follow-Up Instructions / Follow-Up Please keep your previously scheduled follow up appointment. Current Hospital Diet Patient's current hospital diet: Discharge Diet Recommended Diet: Regular Diet Procedures Procedures Performed: cystoscopy Pending Studies Studies pending at discharge: no Medical Emergencies . Who to Call and When: Medical Emergencies: If at any time you feel your situation is an emergency, please call 911 immediately. . Non-Emergent Contact Non-Emergency issues call your: Urologist Call Non-Emergent contact if: you have a fever, temperature is above 101.5, your pain is not controlled, your pain is worsening . . "Provider Documentation" section prepared by Trevor Thompson. . VTE Core Measure Inpt VTE Proph given/why not?: Treatment not indicated
[2017-10-11 15:59] VITALS: BP 106/71; PULSE 78; TEMP 36.7; O2SAT 97
[2017-10-11] MEDS ORDERED: ACETAMINOPHEN 325 MG TAB PO PRN (16:00)
[2017-10-11] MEDS ORDERED: HYDROCODONE/ACETAMOPHEN 5/325MG TAB PO PRN (16:00)
[2017-10-11 16:30] VITALS: BP 108/71; PULSE 70; O2SAT 97
--- NOTE | 2017-10-11 16:39 | Anesthesiology Progress Note ---
Anesthesia Post Op Note Date & Time Oct 11, 2017 at 16:39 Vital Signs Pain Intensity: 0 Vital Signs Past 12 Hours Date Time Temp Pulse Resp B/P (MAP) Pulse Ox O2 Delivery O2 Flow Rate FiO2 10/11/17 15:59 36.7 78 20 106/71 97 Room Air 10/11/17 12:35 36.8 86 20 146/79 (101) 97 Room Air Notes Mental Status: alert / awake / arousable, participated in evaluation Pt Amnestic to Procedure: Yes Nausea / Vomiting: adequately controlled Pain: adequately controlled Airway Patency, RR, SpO2: stable & adequate BP & HR: stable & adequate Hydration State: stable & adequate Anesthetic Complications: no major complications apparent
[2017-10-11 16:55] VITALS: BP 127/74; PULSE 69; TEMP 36.4; O2SAT 97
[2018-10-11] MEDS ORDERED: CIPROFLOXACIN 200MG / D5W IV SCH (06:00)
== END 2017-10-11 16:57 | disposition home or self-care (01) ==
LOC: C.ACU 11:53
PROVIDERS: ATTEND Urology
DX: Z12.6 Encounter for screening for malignant neoplasm of bladder (principal); Z85.51 Personal history of malignant neoplasm of bladder; N40.1 Benign prostatic hyperplasia with lower urinary tract symptoms; N13.8 Other obstructive and reflux uropathy; N20.0 Calculus of kidney; Z72.0 Tobacco use; Z80.0 Family history of malignant neoplasm of digestive organs; Z83.3 Family history of diabetes mellitus; Z82.49 Family history of ischemic heart disease and other diseases of the circulatory system; Z80.3 Family history of malignant neoplasm of breast; Z87.891 Personal history of nicotine dependence

== ENCOUNTER → 2017-10-15 | Outpatient (CLI) | payer OTHER ==
[~2017-10-15] MED LIST changes: -LACTATED RINGER'S 1000ML 1,000 ML IV SCH; +[UNRECOGNIZED DRUG - OTHER] NAE
[2017-10-15 18:38] LABS: ALBUMIN 3.5 gm/dl (3.4-5.0); BLOOD UREA NITROGEN 22 mg/dl (7-18); CALCIUM 8.7 mg/dl (8.5-10.1); CARBON DIOXIDE 26 mmol/L (21-32); CREATININE 1.67 mg/dl (0.60-1.40); GLUCOSE 150 mg/dl (70-99); PHOSPHORUS 2.8 mg/dl (2.5-4.9); POTASSIUM 4.4 mmol/L (3.5-5.1); SODIUM 132 mmol/L (136-145)
[2017-10-15 18:43] LABS: BASO % 1.1 %; BASO ABS # 0.07 K/uL (0-0.2); EOS % 2.3 %; EOS ABS # 0.15 K/uL (0-0.5); HEMATOCRIT 40.1 % (42-52); HEMOGLOBIN 13.9 g/dL (14.0-18.0); IG# 0.01 K/uL (0.00-0.02); LYMPH % 29.7 %; MEAN CELL VOLUME 93.7 fL (80-100); MEAN CORPUSCULAR HEMOGLOBIN 32.5 pg (25-34); MEAN CORPUSCULAR HGB CONC 34.7 g/dl (32-36); MEAN PLATELET VOLUME 9.8 fL (7.4-10.4); MONO % 9.7 %; MONO ABS # 0.62 K/uL (0.11-0.59); NEUT ABS # 3.65 K/uL (1.4-6.5); PLATELET COUNT 197 K/uL (130-400); RED CELL DISTRIBUTION WIDTH CV 13.3 % (11.5-14.5); RED CELL DISTRIBUTION WIDTH SD 45.6 fL (36.4-46.3)
[2017-10-16 06:34] LABS: HEMOGLOBIN A1C 5.9 % (4.5-5.6)
== END | disposition home or self-care (01) ==
LOC: C.LABPVFM 13:14
PROVIDERS: ATTEND Internal Medicine Nephrology
DX: Z13.21 Encounter for screening for nutritional disorder (principal)

== ENCOUNTER → 2017-11-15 | Outpatient (CLI) | payer OTHER ==
[~2017-11-15] MED LIST changes: +FINASTERIDE PO; +HYDR-3419 PO; -HYDR-5806 PO; +OXYC-57 PO
--- NOTE | 2017-11-15 13:01 | DIAGNOSTIC IMAGING REPORT ---
CHEST 2 VIEWS ROUTINE CLINICAL HISTORY: INCISIONAL HERNIA COMPARISON STUDY: November 03, 2016 FINDINGS: The cardiac and mediastinal contours remain stable. There is no failure. There is no focal pulmonary consolidation. There are no pleural effusions. There is a right-sided A-Port catheter present. There is an old left fifth rib deformity. There is a 9 mm opacity at the left lung base. Focal atelectatic change is favored over a true nodule. A three-month follow-up study is recommended.[ IMPRESSION: 9 mm opacity at the left lung base. Focal atelectasis is favored over a true parenchymal mass. A three-month follow-up study is recommended Electronically signed by: Moe Berrios M.D. 11/15/2017 12:59 PM Dictated Date/Time: 11/15/2017 12:57 PM
== END | disposition home or self-care (01) ==
LOC: C.RAD1850 12:36
PROVIDERS: ATTEND Surgery
DX: Z01.811 Encounter for preprocedural respiratory examination (principal); K43.2 Incisional hernia without obstruction or gangrene; R91.8 Other nonspecific abnormal finding of lung field

== ENCOUNTER 2017-11-18 11:11 | Observation (INO) | payer OTHER ==
[2017-11-08 15:16] VITALS: BMI 35.0
[~2017-11-18] VITALS: Ht 175.3 cm; Wt 108.2 kg
[2017-11-18] VITALS (7 sets, daily range): BP systolic 112–155; BP diastolic 71–81; PULSE 56–74; TEMP 36.4–37.1; O2SAT 94–98; Ht 175.3 cm; Wt 108.2 kg
[~2017-11-18 11:11] MED LIST changes: +ATROPINE SULFATE 0.1 MG/ML 5ML SYR IV PRN; +DEXAMETHASONE SOD INJ 4 MG/ML VIAL ONE; +EpHEDrine SULFATE INJ 50 MG/ML AMP IV PRN; +FENTANYL CITRATE INJ 50 MCG/1 ML 2 ML VIAL IV PRN; +FENTANYL CITRATE INJ 50 MCG/1 ML 2 ML VIAL ONE; +GLYCOPYRROLATE INJ 0.2 MG/ML VIAL ONE; +HYDROmorphone INJ 1 MG/ML SYR IV PRN; +LABETALOL HCL IV 5 MG/ML 20ML IV PRN; +LACTATED RINGER'S 1000ML 1,000 ML IV SCH; +LIDOCAINE HCL 2% 2 ML VIAL (20MG/ML) ONE; +MEPERIDINE HCL 25 MG/ML CARP IV PRN; +MIDAZOLAM HCL 1 MG/ML 2ML VIAL ONE; +NEOSTIGMINE METHYLSULFATE 5 MG/5 ML SYR ONE; +ONDANSETRON INJ 2 MG/ML 2 ML VIAL IV PRN; +ONDANSETRON INJ 2 MG/ML 2 ML VIAL ONE; -OXYC-57 PO; +PROPOFOL IV EMULSION 10 MG/ML 20 ML VIAL IV ONE; +ROCURONIUM BROMIDE 10 MG/ML 5 ML VIAL IV ONE
--- NOTE | 2017-11-18 13:08 | History & Physical Bridge Note ---
H&P Re-Evaluation Bridge Note: will get nasal swab for MRSA at bedside pt marked I have examined the patient, reviewed the History & Physical and in the interval since the performance of the History & Physical I have noted the following changes of clinical significance: No changes noted
[2017-11-18] MEDS ORDERED: BUPIVACAINE 0.5 % 5 MG/1 ML MPF 30ML VIAL ONE (13:21)
[2017-11-18] MEDS ORDERED: BACITRACIN 50000 UNIT VIAL ONE (13:21)
[2017-11-18] MEDS ORDERED: FENTANYL CITRATE INJ 50 MCG/1 ML 2 ML VIAL ONE ×3 (14:25→15:35)
--- NOTE | 2017-11-18 15:07 | [facility] Post Operative Brief Note ---
Immediate Operative Summary Operative Date Nov 18, 2017. Pre-Operative Diagnosis Incisional Hernia, Symptomatic Post-Operative Diagnosis multifenestrated incisional hernias Procedure(s) Performed open repair with surgimesh lyses of adhesions Surgeon Dr. Mateusz Perez [employer] Surgeon(s) Yoly Dixon PA-C Estimated Blood Loss 25cc Findings See Below multiple inciisonal hernias with small bowel contents Specimens Microbiology 1. Urine for urinalysis, culture and sensitivity if indicated.
[2017-11-18] MEDS ORDERED: ONDANSETRON INJ 2 MG/ML 2 ML VIAL ONE (15:20)
[2017-11-18] MEDS ORDERED: ONDANSETRON INJ 2 MG/ML 2 ML VIAL IV PRN (15:30)
[2017-11-18] MEDS ORDERED: MoRPHine SULFATE 4 MG/ML 1 ML CARP\\VIAL IV PRN (15:30)
[2017-11-18] MEDS ORDERED: OXYCODONE/ACETAMINOPHEN 5-325 TAB PO PRN (15:30)
[2017-11-18] MEDS ORDERED: MoRPHine SULFATE 2 MG/ML CARP IV PRN ×2 (15:30)
--- NOTE | 2017-11-18 16:06 | Anesthesiology Progress Note ---
Anesthesia Post Op Note Date & Time Nov 18, 2017 at 16:05 Vital Signs Pain Intensity: 2 Vital Signs Past 12 Hours Date Time Temp Pulse Resp B/P (MAP) Pulse Ox O2 Delivery O2 Flow Rate FiO2 11/18/17 15:55 55 14 138/78 96 Nasal Cannula 2 11/18/17 15:45 58 12 165/88 98 Nasal Cannula 2 11/18/17 15:35 64 14 157/96 100 Oxymask 10 11/18/17 15:25 71 14 178/90 100 Oxymask 10 11/18/17 15:17 36.6 86 16 174/115 100 Oxymask 10 11/18/17 11:49 36.5 74 20 133/71 (91) 98 Room Air Notes Mental Status: alert / awake / arousable, participated in evaluation Pt Amnestic to Procedure: Yes Nausea / Vomiting: adequately controlled Pain: adequately controlled Airway Patency, RR, SpO2: stable & adequate BP & HR: stable & adequate Hydration State: stable & adequate Anesthetic Complications: no major complications apparent
[2017-11-18] MEDS ORDERED: OXYC-57 PO (16:08)
--- NOTE | 2017-11-18 16:11 | Discharge Instructions ---
Discharge Instructions Date of Service Nov 18, 2017. Admission Reason for Admission: Incisional Hernia Discharge Discharge Diagnosis / Problem: Incisional Hernia Discharge Goals Goal(s): Decrease discomfort, Improve function Activity Recommendations Activity Limitations: as noted below Lifting Limitations: no more than 10 pounds Exercise/Sports Limitations: until after follow-up appointment May Resume Sexual Activity: after follow-up appointment Shower/Bathe: tomorrow Driving or Machine Use: resume 3 days after discharge . Instructions / Follow-Up Instructions / Follow-Up Please call the general surgery clinic to set up an appointment for staple removal. You may shower tomorrow, but do not submerge your incision in standing water. Please follow-up with Dr. Perez in the General Surgery Clinic in 1-2 weeks. Please call the office to make an appointment. Please call the office at [phone] with any questions or concerns. Current Hospital Diet Patient's current hospital diet: Clear Liquid Diet Discharge Diet Recommended Diet: Regular Diet Procedures Procedures Performed: open repair with surgimesh lyses of adhesions Pending Studies Studies pending at discharge: yes List of pending studies: pathology report Laboratory Results Hemoglobin A1c Test 10/15/17 13:25 Range/Units Estimated Average Glucose 123 mg/dl Hemoglobin A1c 5.9 H 4.5-5.6 % Medical Emergencies . Who to Call and When: Medical Emergencies: If at any time you feel your situation is an emergency, please call 911 immediately. . Non-Emergent Contact Non-Emergency issues call your: Primary Care Provider, Surgeon Call Non-Emergent contact if: temperature is above 101.5, your pain is not controlled, wound has increased drainage, wound has increased redness . "Provider Documentation" section prepared by Yoly Dixon. . VTE Core Measure Inpt VTE Proph given/why not?: SCD's
[2017-11-18] MEDS ORDERED: LORAZEPAM 1 MG TAB PO PRN (16:45)
[2017-11-18] MEDS: LACTATED RINGER'S 1000ML 1,000 ML IV SCH ×2 (17:12→23:36)
[2017-11-18] MEDS ORDERED: IV FLUIDS COMPLETED PRN (17:15)
[2017-11-18] MEDS: OXYCODONE/ACETAMINOPHEN 5-325 TAB PO PRN ×2 (18:41→23:35)
--- NOTE | 2017-11-18 20:01 | OPERATIVE REPORT ---
DATE OF OPERATION: 11/18/2017 SURGEON: Dr. Perez. PLASTIC BLOCK BOILER RELINER: Yoly Dixon. PREOPERATIVE DIAGNOSIS: Incisional hernia. POSTOPERATIVE DIAGNOSIS: Multi-fenestration of an incisional hernia. PROCEDURE: Repair of multi-fenestrated incisional hernia with a Surgimesh 10 cm and cut appropriately, lysis of adhesion. SUMMARY: The patient was brought into the operating room theater. The abdomen was prepped with Betadine scrubbing solution and properly draped, systemic antibiotics was given. The patient had a midline incision, the lower part of that incision had been repaired years ago with mesh, but the upper part of the incision had a bulge in the area and consistent with an incisional hernia. We basically took out the scar from just below the xiphoid to the umbilical area, deepened through subcutaneous tissue. We made an oblique incision around the scar. At this point, we continued down until we were about to the abdominal wall and actually in the subQ, we were met with the hernial sac. As we entered the hernial sac, we could see a small loop of small bowel attached to the inside of the hernial sac which was strictly adherent to a defect in the mid portion of this epigastric hernia. The defect itself we could measure out was approximately 4 cm or so in diameter. We then scored the subcutaneous tissue above and below that area to the abdominal wall where we were able then I once freed up the small bowel, placed a finger in the abdomen and bluntly dissection up and down along the incision and were able to identify at least 2 other defects going up towards the xiphoid. This was incarcerated fatty tissue in that area that we reduced all in the preperitoneal into the abdomen. The defect was almost upper portion was about a cm, then the other one was 1.5 cm with a bridge of tissue that was about 1 cm and the larger defect that we first appreciated about 4 cm. Once I scored all the undersurface and then palpated no other more defects, I elected not to close these and brought in a sheet of Surgimesh which we measured out a combining the upper and lower end-points of the multiple hernias in about 10 cm. We brought in a 12 cm mesh, cut it appropriately and placed the smooth side intraabdominally facing the bowel. We then circumferentially tacked this down with 2-0 nylon to the point that there was no tension at all on the mesh and the defects in the fascia were left as is. Once we completed this, then I ran a 2-0 nylon and a 4 cm defect retirement tying it and then ran it against the other way elevating the mesh to the anterior abdominal wall. We similarly did the other 2 openings. Once this had been accomplished, then we closed the subcutaneous tissue after freeing up some and debrided the subcutaneous tissue from the hernial defect with 2-0 interrupted and 2-0 Dexon continuous fashion. Skin edges approximated with liat. Dressing was applied. The procedure was tolerated well by the patient. Estimated blood loss approximately 25 mL. The patient was taken to recovery room in good condition. I attest to the content of the Intraoperative Record and any orders documented therein. Any exception s are noted below.
[2017-11-18] MEDS ORDERED: ZOLPIDEM TARTRATE 10 MG TAB PO SCH (21:00)
[2017-11-19 03:30] VITALS: BP 114/70; PULSE 62; TEMP 36.7; O2SAT 95
[2017-11-19] MEDS: OXYCODONE/ACETAMINOPHEN 5-325 TAB PO PRN ×2 (05:16→10:10)
[2017-11-19] MEDS: LACTATED RINGER'S 1000ML 1,000 ML IV SCH (07:30)
[2017-11-19 07:54] VITALS: BP 124/82; PULSE 60; TEMP 36.6; O2SAT 95
--- NOTE | 2017-11-19 07:57 | SURGERY PROGRESS NOTE ---
DATE: 11/19/2017 Jan is first postoperative day status post open multiple fenestration incisional hernia repair with mesh. He is alert, coherent. Intraoperative findings were discussed with him. His last vitals showed a temperature of 36.7, pulse 62, respirations 12, blood pressure 114/70, and O2 sats 95 on room air. The abdomen is soft. The incision, I changed the dressing and some drainage along the incision which is free of any hematoma. The edges are viable. The liat are intact. This was redressed. From my point of view, Jan can probably discharge later this afternoon, but we will make sure that he is fine. We will recheck on him and make sure he has enough analgesics. We will see him back in the office in approximately 1 week. He should not lift anything heavier than a gallon of milk and no driving for approximately 1 week.
--- NOTE | 2017-11-19 08:27 | Anesthesiology Progress Note ---
Anesthesia Post Op Note Date & Time Nov 19, 2017 at 08:27 Vital Signs Pain Intensity: 3.0 Vital Signs Past 12 Hours Date Time Temp Pulse Resp B/P (MAP) Pulse Ox O2 Delivery O2 Flow Rate FiO2 11/19/17 07:54 36.6 60 18 124/82 (96) 95 Room Air 11/19/17 03:30 36.7 62 17 114/70 (85) 95 Room Air 11/18/17 23:25 Room Air 11/18/17 23:00 36.6 60 18 112/71 (85) 94 Room Air Notes Mental Status: alert / awake / arousable, participated in evaluation Pt Amnestic to Procedure: Yes Nausea / Vomiting: adequately controlled Pain: adequately controlled Airway Patency, RR, SpO2: stable & adequate BP & HR: stable & adequate Hydration State: stable & adequate Anesthetic Complications: no major complications apparent
[2017-11-19 10:01] VITALS: O2SAT 95
[2017-11-19 11:53] VITALS: BP 124/70; PULSE 57; TEMP 36.6; O2SAT 95
[2017-11-19 12:57] VITALS: BP 124/70; PULSE 57; TEMP 36.6; O2SAT 95
--- NOTE | 2017-11-22 10:08 | DISCHARGE SUMMARY ---
PRIMARY DISCHARGE DIAGNOSIS: Incisional hernia. SECONDARY DISCHARGE DIAGNOSES: 1. Chronic kidney disease stage III. 2. Acid reflux. 3. History of colon cancer. 4. History of ureteral cancer. 5. History of pulmonary embolism. PROCEDURE PERFORMED: Open incisional hernia repair with mesh and lysis of adhesions. HOSPITAL COURSE: The patient is a 61-year-old male approximately 1 year status post colectomy and nephroureterectomy, now with incisional hernia and taken to the operating room through same day for open repair. The procedure was well tolerated. He was transferred to the surgical floor for overnight observation. He did well overnight. He was able to tolerate advancing diet on postoperative day 1. His pain was managed with oral analgesics. Incision was clean and dry. He was stable for discharge later in the afternoon. DISCHARGE INSTRUCTIONS: Discharge home. Follow up with Dr. Perez in 1 week. DISCHARGE MEDICATIONS: Vicodin 1 tablet every 4 hours as needed, Ativan 1 mg 3 times a day as needed, Ambien 10 mg at bedtime as needed. MTDD
== END 2017-11-19 15:11 | disposition home or self-care (01) ==
LOC: C.ACU 11:11 → C.MSN 14:50 → ENRESERV 16:12
PROVIDERS: ADMIT Surgery; ATTEND Surgery
DX: K43.2 Incisional hernia without obstruction or gangrene (principal); K21.9 Gastro-esophageal reflux disease without esophagitis; N40.1 Benign prostatic hyperplasia with lower urinary tract symptoms; N13.8 Other obstructive and reflux uropathy; N18.3 Chronic kidney disease, stage 3 (moderate); N52.9 Male erectile dysfunction, unspecified; E78.1 Pure hyperglyceridemia; R73.03 Prediabetes; Z87.891 Personal history of nicotine dependence; Z90.5 Acquired absence of kidney; Z85.54 Personal history of malignant neoplasm of ureter; Z90.49 Acquired absence of other specified parts of digestive tract; Z87.442 Personal history of urinary calculi; Z80.0 Family history of malignant neoplasm of digestive organs; Z83.3 Family history of diabetes mellitus; Z82.49 Family history of ischemic heart disease and other diseases of the circulatory system; Z80.3 Family history of malignant neoplasm of breast

== ENCOUNTER → 2017-12-20 | Outpatient (CLI) | payer OTHER ==
[~2017-12-20] MED LIST changes: -ATROPINE SULFATE 0.1 MG/ML 5ML SYR IV PRN; -DEXAMETHASONE SOD INJ 4 MG/ML VIAL ONE; -EpHEDrine SULFATE INJ 50 MG/ML AMP IV PRN; -FENTANYL CITRATE INJ 50 MCG/1 ML 2 ML VIAL IV PRN; -FENTANYL CITRATE INJ 50 MCG/1 ML 2 ML VIAL ONE; -GLYCOPYRROLATE INJ 0.2 MG/ML VIAL ONE; -HYDROmorphone INJ 1 MG/ML SYR IV PRN; -LABETALOL HCL IV 5 MG/ML 20ML IV PRN; -LACTATED RINGER'S 1000ML 1,000 ML IV SCH; -LIDOCAINE HCL 2% 2 ML VIAL (20MG/ML) ONE; -MEPERIDINE HCL 25 MG/ML CARP IV PRN; -MIDAZOLAM HCL 1 MG/ML 2ML VIAL ONE; -NEOSTIGMINE METHYLSULFATE 5 MG/5 ML SYR ONE; -ONDANSETRON INJ 2 MG/ML 2 ML VIAL IV PRN; -ONDANSETRON INJ 2 MG/ML 2 ML VIAL ONE; -PROPOFOL IV EMULSION 10 MG/ML 20 ML VIAL IV ONE; -ROCURONIUM BROMIDE 10 MG/ML 5 ML VIAL IV ONE
[2017-12-20 17:39] LABS: BASO % 1.1 %; BASO ABS # 0.06 K/uL (0-0.2); EOS % 3.3 %; EOS ABS # 0.18 K/uL (0-0.5); HEMATOCRIT 39.1 % (42-52); HEMOGLOBIN 13.3 g/dL (14.0-18.0); IG# 0.01 K/uL (0.00-0.02); LYMPH % 32.4 %; LYMPH ABS # 1.78 K/uL (1.2-3.4); MEAN CELL VOLUME 93.3 fL (80-100); MEAN CORPUSCULAR HEMOGLOBIN 31.7 pg (25-34); MEAN PLATELET VOLUME 9.7 fL (7.4-10.4); MONO % 8.4 %; MONO ABS # 0.46 K/uL (0.11-0.59); NEUT % 54.6 %; PLATELET COUNT 172 K/uL (130-400); RED CELL DISTRIBUTION WIDTH CV 13.3 % (11.5-14.5); RED CELL DISTRIBUTION WIDTH SD 45.2 fL (36.4-46.3); WHITE BLOOD COUNT 5.49 K/uL (4.8-10.8)
[2017-12-20 17:54] LABS: ALBUMIN 3.6 gm/dl (3.4-5.0); ALT/SGPT 25 U/L (12-78); AST/SGOT 16 U/L (15-37); BLOOD UREA NITROGEN 21 mg/dl (7-18); CALCIUM 8.7 mg/dl (8.5-10.1); CARBON DIOXIDE 25 mmol/L (21-32); CREATININE 1.67 mg/dl (0.60-1.40); GLUCOSE 119 mg/dl (70-99); POTASSIUM 4.2 mmol/L (3.5-5.1); SODIUM 134 mmol/L (136-145)
[2017-12-20 17:56] LABS: ALKALINE PHOSPHATASE 129 U/L (45-117); TOTAL PROTEIN 7.4 gm/dl (6.4-8.2)
--- NOTE | 2018-01-04 17:04 | CODING QUERY NO DIAGNOSIS ---
TREATMENT RENDERED WITHOUT A DIAGNOSIS 53 To promote full compliance with coding requirements relating to patient care, physician participation is requested in all cases of city clerk uncertainty. Please assist us with providing a diagnosis/symptom for the test(s) below: A diagnosis/symptom was not documented on your Order. A valid diagnosis/symptom is required to bill all insurances. Please remember that we are unable to code a diagnosis of rule out, probable, possible, questionable, or suspected. DOS 12/20/17 Tests that require a diagnosis: * CBC w/AUTO DIFF DIAGNOSIS: * CMP DIAGNOSIS: Provider Signature: Date: Thank you Nanette Ortiz [employer] Once completed, please kindly fax back to [phone] For questions please call [phone]
== END | disposition home or self-care (01) ==
LOC: C.LABPVFM 13:11
PROVIDERS: ATTEND Internal Medicine Hematology & Oncology
DX: C18.6 Malignant neoplasm of descending colon (principal); C66.2 Malignant neoplasm of left ureter

== ENCOUNTER → 2018-01-25 | Outpatient (CLI) | payer OTHER ==
[2018-01-25 18:15] LABS: ALBUMIN 3.7 gm/dl (3.4-5.0); BLOOD UREA NITROGEN 17 mg/dl (7-18); CALCIUM 8.9 mg/dl (8.5-10.1); CARBON DIOXIDE 25 mmol/L (21-32); CREATININE 1.73 mg/dl (0.60-1.40); GLUCOSE 107 mg/dl (70-99); PHOSPHORUS 2.7 mg/dl (2.5-4.9); POTASSIUM 4.2 mmol/L (3.5-5.1); SODIUM 135 mmol/L (136-145)
== END | disposition home or self-care (01) ==
LOC: C.LABPVFM 14:19
PROVIDERS: ATTEND Internal Medicine Nephrology
DX: E87.1 Hypo-osmolality and hyponatremia (principal)

== ENCOUNTER → 2018-04-21 | Outpatient (CLI) | payer OTHER ==
[2018-04-21 17:20] LABS: BASO % 1.2 %; BASO ABS # 0.08 K/uL (0-0.2); EOS % 3.4 %; EOS ABS # 0.23 K/uL (0-0.5); HEMATOCRIT 40.9 % (42-52); HEMOGLOBIN 13.9 g/dL (14.0-18.0); IG# 0.02 K/uL (0.00-0.02); LYMPH % 25.5 %; LYMPH ABS # 1.72 K/uL (1.2-3.4); MEAN CELL VOLUME 95.1 fL (80-100); MEAN CORPUSCULAR HEMOGLOBIN 32.3 pg (25-34); MEAN PLATELET VOLUME 10.1 fL (7.4-10.4); MONO % 6.7 %; MONO ABS # 0.45 K/uL (0.11-0.59); NEUT % 62.9 %; NEUT ABS # 4.25 K/uL (1.4-6.5); PLATELET COUNT 224 K/uL (130-400); RED CELL DISTRIBUTION WIDTH CV 13.4 % (11.5-14.5); RED CELL DISTRIBUTION WIDTH SD 46.5 fL (36.4-46.3); WHITE BLOOD COUNT 6.75 K/uL (4.8-10.8)
[2018-04-21 17:50] LABS: ALBUMIN 3.6 gm/dl (3.4-5.0); ALKALINE PHOSPHATASE 110 U/L (45-117); ALT/SGPT 30 U/L (12-78); AST/SGOT 18 U/L (15-37); BLOOD UREA NITROGEN 20 mg/dl (7-18); CALCIUM 8.6 mg/dl (8.5-10.1); CARBON DIOXIDE 27 mmol/L (21-32); CREATININE 1.79 mg/dl (0.60-1.40); GLUCOSE 103 mg/dl (70-99); POTASSIUM 4.4 mmol/L (3.5-5.1); SODIUM 136 mmol/L (136-145); TOTAL PROTEIN 7.2 gm/dl (6.4-8.2)
== END | disposition home or self-care (01) ==
LOC: C.LABPVFM 13:30
PROVIDERS: ATTEND Internal Medicine Nephrology
DX: C18.6 Malignant neoplasm of descending colon (principal)

== ENCOUNTER 2022-11-06 15:10 | Inpatient (IN) ==
[2022-11-06] MEDS ORDERED: ONDANSETRON INJ 2 MG/ML 2 ML VIAL IV STA (15:29)
[2022-11-06] MEDS ORDERED: SODIUM CHLORIDE 0.9% 500 ML IV STA (15:29)
--- NOTE | 2022-11-06 15:45 | Emergency Department Note ---
Impression & Plan Abdominal pain, LLQ (left lower quadrant) ED Provider Note INFORMANT: Patient ED PROVIDER(S): Jan Watkins MD CHIEF COMPLAINT: Abdominal pain PLAN: Disposition: Admitted Condition: Good Outpatient prescription management: none Referral: None MEDICAL DECISION MAKING: Patient presented because of mild upper and moderate left lower quadrant abdominal pain. He also noted constipation and some black stools. He did take Pepto-Bismol, but after the black stools developed. Patient had an IV established. Blood work was obtained. He was given IV Dilaudid and Zofran for symptom control. The patient was sent for CT imaging without contrast due to his history of nephrectomy. The patient's rectal examination was positive for dark stool that was Hemoccult positive. He did not have any identifiable pathology seen on CT imaging. Patient was still having abdominal discomfort on reassessment. Due to the concerns for possible upper GI source given the melanotic heme positive stools he was given IV Pepcid and Protonix. I discussed further management in the hospital and patient was in agreement. Consultation was made with Dr. Foster Hutchinson of the [facility] service. Patient was evaluated in the ER for further management. After review of the information above and other included data, I feel the patient requires admission. Triage Nursing notes reviewed and agree them. Vital Signs: reviewed and remarkable for no significant abnormalities Prior /Outside records reviewed: none Differential diagnosis: diverticulitis, Appendicitis, testicular torsion, infections, UTI, obstruction, mesenteric ischemia, aortic pathology, inflammatory bowel disease, renal colic, PUD, pancreatitis, biliary pathology, hernia, volvulus, constipation, as well as other pathologies. Diagnostics, as interpreted by me: ECG: none Cardiac Monitoring: Cardiac monitoring ordered by me: The patient was placed on continuous cardiac monitoring and observed. It revealed a normal sinus rhythm at 61 beats per minute without ectopy or evidence of dysrhythmia. Medical decision rules: none Imaging studies: CT scan as noted above. I refer you to the EMR for further details. HPI: The patient is a 66year old male who presents to the Emergency Room with complaints of left lower quadrant abdominal pain. This started yesterday and is worsening. The patient also notes the following associated symptoms, mild upper abd pain, constipation, nausea, dizziness, black bowel movement that started yesterday. The patient has tried Pepto-Bismol relieving factors. Current pain is rated as 5/10. Pt denies LOC, headache, fevers, chills, diaphoresis, visual changes, neck pain, chest pain, breathing difficulties, vomiting, back pain, hematochezia, urinary symptoms, numbness, weakness, lymphadenopathy, rash, or other complaints. PAST MEDICAL HISTORY: See Below, colon cancer, kidney PAST SURGICAL HISTORY: See Below, left nephrectomy, colon resection x2 SOCIAL HISTORY: See Below, smoker HOME MEDICATIONS: See Below ALLERGIES: See Below VITALS: See Below PHYSICAL EXAMINATION: GENERAL: Awake, alert, uncomfortable-appearing, in no distress HENT: Normocephalic, atraumatic. Oropharynx unremarkable. EYES: Normal conjunctiva. Sclera non-icteric. NECK: Inspection normal. Non-tender. Supple. No nuchal rigidity. FROM. No masses. RESPIRATORY: Clear to auscultation. No wheezes. No rales. Normal respiratory effort. CARDIAC: Normal rate. Normal rhythm. No murmurs. No rubs. Extremities warm and well perfused. Pulses equal. No JVD. GI: Soft, non-distended. Minimal generalized tenderness but left lower quadrant tenderness to palpation. Mild rebound and guarding. No masses. RECTAL: ZBlack stool, hemocult positive. MUSCULOSKELETAL: Atraumatic. Chest examination reveals no tenderness. The back is symmetrical on inspection without obvious abnormality. There is no CVA tenderness to palpation. No joint edema. LOWER EXTREMITIES: Calves are equal size bilaterally and non-tender. No edema. No discoloration. NEURO: Normal sensorium. No sensory or motor deficits noted. SKIN: No rash or jaundice noted. Past Med/Surg History Medical History (Updated 11/06/22 @ 15:45 by Jan Watkins MD) Alcohol abuse Anxiety Benign prostatic hyperplasia with urinary obstruction Borderline diabetes Chronic kidney disease, stage III (moderate) History of colon cancer twice----sx/chemo History of kidney cancer 2015 left kidney--sx/chemo Incisional hernia Metabolic encephalopathy Nephrolithiasis Pulmonary embolism 2014--unknown cause Sleep disturbances Ventral incisional hernia Surgical History Jam filter in place 2014 History of appendectomy History of colonoscopy with polypectomy History of incisional hernia repair History of lipoma off thoracic area of back History of partial surgical removal of colon x2-- for colon cancer History of repair of left rotator cuff History of tonsillectomy History of tooth extraction all teeth History of vascular access device Aport in left chest Hx of kidney removal left d/t cancer Family History Sister Breast cancer Mother Colorectal cancer Father Myocardial infarction Family history of diabetes mellitus Other No family history of adverse response to anesthesia Denies family history of Ovarian cancer Prostate cancer Social History Smoking Status: Current every day smoker Tobacco Type: Cigarettes Cigarettes Per Day: 10; Second Hand Exposure: No; Hx Alcohol Use: Yes Alcohol type: beer and hard liquor Alcohol Intake Frequency: 4 or More x per/Week Hx Substance Use: No Preferred Language: Yi Communication Ability: Effective Brine Maker Required: No Beliefs That Will Affect Care: None marital status: Single Current Living Situation: Alone current occupational status: retired How many Children do You have: 0 Feels Safe at Home: Yes Childhood Exposure to Second-Hand Smoke: Yes caffeine: Yes Dental Care, Regularly: No Physical Activity Frequency: Daily Seatbelt Use: sometimes Sunscreen Use: Yes Assistive Devices: Denture - Upper, Denture - Lower and Glasses Allergies Allergies Allergy/AdvReac Type Severity Reaction Status Date / Time No Known Allergies Allergy Verified 08/12/22 13:31 Home Meds Previous Rx's Medication Instructions Recorded sildenafil 100 mg tablet 100 mg PO DAILY PRN sexual 09/24/21 activity #10 tabs zolpidem 10 mg tablet 10 mg PO HS sleep #30 tabs 07/21/22 triamcinolone acetonide 0.1 % 1 applic topical BID PRN rash #15 08/12/22 topical cream grams Results & Data (ED) Vital Signs Vital Signs - 24 hr 11/06/22 15:19 11/06/22 15:29 11/06/22 16:58 Temperature 36.6 C Temperature Source Temporal Artery Scan Pulse Rate 78 76 Pulse Rate [Apical] Respiratory Rate 18 Blood Pressure 181/102 H Blood Pressure [Right Arm] Blood Pressure Mean 128 Blood Pressure Mean [Right Arm] Blood Pressure Position Sitting Blood Pressure Position [Right Arm] Pulse Oximetry 97 97 Oxygen Delivery Method Room Air Room Air Sepsis Recent Fever Within 48 Hours No Sepsis New/Unexplained Change in Mental Status N/A Sepsis Action Taken by Nursing No Action Required 11/06/22 19:41 11/06/22 20:51 Temperature Temperature Source Pulse Rate 61 Pulse Rate [Apical] 63 Respiratory Rate 20 Blood Pressure Blood Pressure [Right Arm] 154/77 H Blood Pressure Mean Blood Pressure Mean [Right Arm] 102 Blood Pressure Position Blood Pressure Position [Right Arm] Sitting Pulse Oximetry 97 Oxygen Delivery Method Room Air Sepsis Recent Fever Within 48 Hours Sepsis New/Unexplained Change in Mental Status Sepsis Action Taken by Nursing Laboratory Data 11/06/22 15:58 11/06/22 15:58 Lab Results 11/06/22 11/06/22 11/06/22 Range/Units 15:58 15:58 19:40 WBC 7.83 (4.8-10.8) K/ul RBC 4.49 L (4.70-6.10) M/uL Hgb 14.7 (14.0-18.0) g/dl Hct 41.0 L (42.0-52.0) % MCV 91.3 (80.0-100.0) fL MCH 32.7 (25.0-34.0) pg MCHC 35.9 (32.0-36.0) g/dL RDW Std Deviation 41.7 (36.4-46.3) fL RDW Coeff of Ana Paula 12.5 (11.5-14.5) % Plt Count 181 (130-400) K/uL MPV 9.4 (9.4-12.4) fL Immature Gran % (Auto) 0.3 % Neut % (Auto) 75.6 % Lymph % (Auto) 17.6 % Mcintosh % (Auto) 4.5 % Eos % (Auto) 1.1 % Baso % (Auto) 0.9 % Neut # (Auto) 5.92 (1.40-6.50) K/uL Lymph # (Auto) 1.38 (1.2-3.4) K/uL Mcintosh # (Auto) 0.35 (0.11-0.59) K/uL Eos # (Auto) 0.09 (0-0.50) K/uL Baso # (Auto) 0.07 (0-0.2) K/uL Immature Gran # (Auto) 0.02 (0.01-0.20) K/uL Sodium 137 (136-145) mmol/L Potassium 4.2 (3.5-5.1) mmol/L Chloride 102 (98-107) mmol/L Carbon Dioxide 28 (21-32) mmol/L Anion Gap 7 (3-11) BUN 11 (6-23) mg/dl Creatinine 1.33 (0.6-1.4) mg/dl Est Cr Clr Drug Dosing 60.2 ml/min Est GFR ( Amer) 63.2 ml/min Est GFR (Non-Af Amer) 54.5 ml/min BUN/Creatinine Ratio 8.3 L (10-20) Glucose 113 H (70-99(Fasting)) mg/dl Calcium 9.6 (8.5-10.1) mg/dl Total Bilirubin 0.5 (0.2-1.0) mg/dl AST 25 (13-39) U/L ALT 26 (7-52) U/L Alkaline Phosphatase 107 H (34-104) U/L Total Protein 6.8 (6.0-8.3) gm/dl Albumin 4.3 (3.4-5.0) gm/dl Globulin 2.5 (2.5-4.0) gm/dl Albumin/Globulin Ratio 1.7 (0.9-2) Lipase 59 (11-82) U/L Urine Color Yellow Urine Appearance Clear (Clear) Urine pH 7.0 (4.5-7.5) Ur Specific Roosevelt 1.015 (1.000-1.030) Urine Protein Negative (Negative) Urine Glucose (UA) Negative (Negative) Urine Ketones 1+ H (Negative) Urine Blood Trace-intact H (Negative) Urine Nitrite Negative (Negative) Urine Bilirubin Negative (Negative) Urine Urobilinogen Negative (Negative) Ur Leukocyte Esterase Trace H (Negative) Urine RBC 0-4 (0-4) /hpf Urine WBC 0-5 (0-5) /hpf Ur Epithelial Cells 0-5 (0-5) /lpf Urine Bacteria Negative (Negative) Administered Medications Hydromorphone HCl (Hydromorphone Inj 0.5 Mg/0.5 Ml Syr) 0.5 mg IV Q15M PRN PRN Reason: Pain Stop: 11/20/22 15:28 Last Admin: 11/06/22 19:57 Dose: 0.5 mg Documented By: Admin: 11/06/22 17:13 Dose: 0.5 mg Documented By: Admin: 11/06/22 16:24 Dose: 0.5 mg Documented By: AYAH Pantoprazole Sodium 40 mg/ (Dextrose) 100 mls @ 20 mls/hr IV Q5H ELA Stop: 12/06/22 21:29 Last Admin: 11/06/22 22:12 Dose: 8 mg/hr, 20 mls/hr Documented By: QGV Discontinued Medications Sodium Chloride (Nss) 500 mls @ 999 mls/hr IV .Q31M STA Stop: 11/06/22 15:59 Last Infusion: 11/06/22 17:01 Dose: 0 mls/hr Documented By: Admin: 11/06/22 16:24 Dose: 999 mls/hr Documented By: AYAH Famotidine (Pepcid 20mg Iv Push) 20 mg in 5 mls @ 2.5 mls/min IV NOW STA Stop: 11/06/22 21:07 Last Admin: 11/06/22 21:53 Dose: 2.5 mls/min Documented By: KeziaGV Pantoprazole Sodium (Protonix Bolus/Drip) 0 mls @ 1 mls/hr IV ONE STA Stop: 11/06/22 21:07 Last Admin: 11/06/22 22:12 Dose: Not Given Documented By: QGV Pantoprazole Sodium 80 mg/ (Dextrose) 120 mls @ 400 mls/hr IV NOW ONE Stop: 11/06/22 21:23 Last Infusion: 11/06/22 22:13 Dose: 0 mls/hr Documented By: Admin: 11/06/22 21:53 Dose: 400 mls/hr Documented By: KeziaGV Ondansetron HCl (Ondansetron Inj 2 Mg/Ml 2 Ml Vial) 4 mg IV NOW STA Stop: 11/06/22 15:30 Last Admin: 11/06/22 16:24 Dose: 4 mg Documented By: AYAH Imaging Data Radiologist's Impression: Abdomen/Pelvis CT 11/06/22 15:29 CT SCAN OF THE ABDOMEN AND PELVIS WITHOUT IV CONTRAST CLINICAL HISTORY: Left lower quadrant abdominal pain. COMPARISON STUDY: Abdominal CT dated 06/01/2017. PET CT dated 04/17/2020. TECHNIQUE: CT scan of the abdomen and pelvis is performed from the lung bases to the proximal femora. Images are reviewed in the axial, sagittal, and coronal planes. IV contrast was not administered for this examination as per the referring clinician. Note that the examination was performed in significantly suboptimal fashion without oral and IV contrast. A dose lowering technique was utilized adhering to the principles of ALARA. CT DOSE: 878.39 mGycm FINDINGS: Lung bases: The heart is normal in size and without pericardial effusion. A calcified granuloma is seen in the right middle lobe. The lung bases are otherwise clear noting mild bibasilar scarring/atelectasis. There is a tiny hiatal hernia. Liver: The unenhanced liver is normal in size, contour, and attenuation. There is no intrahepatic biliary ductal dilatation. Gallbladder: Unremarkable. Spleen: Normal in size and attenuation. Pancreas: The unenhanced pancreas is grossly unremarkable. Adrenal glands: Unremarkable. Kidneys: The left kidney is surgically absent. The unenhanced right kidney is normal in size and without hydronephrosis. There is a 3 mm nonobstructing right renal calculus. No ureteral stone is seen. There is no evidence of contour deforming renal mass lesion. Abdominal vasculature: There is advanced atherosclerotic calcification and mild ectasia of the abdominal aorta. An infrarenal IVC filter is in place. Bowel: There is postsurgical change from sigmoid colon resection with colocolonic anastomosis. No bowel obstruction is seen. Residual enteric contrast is seen throughout the colon. There is laxity of the ventral abdominal wall with protrusion of abdominal contents. The appendix is not identified and reported surgically absent. Peritoneum: There is no intraperitoneal free air or abdominal ascites. A midline surgical scar is noted. Lymphadenopathy: None. Pelvic viscera: The prostate gland is enlarged and heterogeneous noting median lobe hypertrophy. The bladder wall is thickened/trabeculated indicating chronic outlet obstruction. There is a fat-containing left inguinal hernia. Skeletal structures: The skeletal structures are osteopenic. There is mild to moderate lumbosacral spondylosis. Bilateral pars defects are noted at L5. Degenerative change is noted in the sacroiliac joints. No lytic or blastic lesions are seen. There are chronic/healed right-sided rib fractures. IMPRESSION: 1. Suboptimal examination without oral and IV contrast. 2. No acute infectious or inflammatory findings are identified in the abdomen or pelvis. 3. There is postsurgical change from left nephrectomy and sigmoid colon resection. 4. Right-sided nephrolithiasis. 5. Additional findings as above. ACT 112: Negative or not required by law. Electronically signed by: Juarez Munoz M.D. 11/06/2022 4:42 PM Discharge Plan Visit Data Chief Complaint: Abdominal Pain Stated Complaint: AB PAIN, DIZZINESS, NAUSEA ED Provider: Jan Watkins Discharge Problem: Abdominal pain, LLQ (left lower quadrant) Forms Stand Alone Forms: My [employer] Prescriptions Prescriptions: No Action zolpidem 10 mg tablet 10 mg PO HS Qty: 30 0RF Rx Instructions: PDMP searched, last filled on 12/24/21 for 30 days, okay to fill sildenafil 100 mg tablet 100 mg PO DAILY PRN (Reason: sexual activity) Qty: 10 6RF Rx Instructions: administer 30 minutes to 4 hours before activity triamcinolone acetonide 0.1 % cream 1 applic topical BID PRN (Reason: rash) Qty: 15 0RF Referrals Referrals: Hortencia Woodruff MD [Primary Care Provider] -
[2022-11-06 16:16] LABS: Basophils # (auto) 0.07 K/uL (0-0.2); Basophils % (auto) 0.9 %; Eosinophils # (auto) 0.09 K/uL (0-0.50); Eosinophils % (auto) 1.1 %; Hemoglobin 14.7 g/dl (14.0-18.0); Immature Granulocytes # (auto) 0.02 K/uL (0.01-0.20); Immature Granulocytes % (auto) 0.3 %; Lymphocytes # (auto) 1.38 K/uL (1.2-3.4); Lymphocytes % (auto) 17.6 %; Mean Corpuscular Hemoglobin 32.7 pg (25.0-34.0); Mean Corpuscular Hgb Conc 35.9 g/dL (32.0-36.0); Mean Corpuscular Volume 91.3 fL (80.0-100.0); Mean Platelet Volume 9.4 fL (9.4-12.4); Monocytes # (auto) 0.35 K/uL (0.11-0.59); Monocytes % (auto) 4.5 %; Neutrophils # (auto) 5.92 K/uL (1.40-6.50); Neutrophils % (auto) 75.6 %; Platelet Count 181 K/uL (130-400); RDW Coefficient of Variation 12.5 % (11.5-14.5); RDW Standard Deviation 41.7 fL (36.4-46.3); Red Blood Count 4.49 M/uL (4.70-6.10); White Blood Count 7.83 K/ul (4.8-10.8)
[2022-11-06] MEDS: HYDROmorphone INJ 0.5 MG/0.5 ML SYR IV PRN ×3 (16:24→19:57)
[2022-11-06 16:41] LABS: Albumin Globulin Ratio 1.7 (0.9-2); Albumin Level 4.3 gm/dl (3.4-5.0); BUN Creatinine Ratio 8.3 (10-20); Bilirubin,Total 0.5 mg/dl (0.2-1.0); Calcium 9.6 mg/dl (8.5-10.1); Creatinine Clr Calc Pharmacy 60.2 ml/min; Est GFR (African American) 63.2 ml/min; Est GFR (Non-African American) 54.5 ml/min; Globulin 2.5 gm/dl (2.5-4.0); Potassium 4.2 mmol/L (3.5-5.1); Total Protein 6.8 gm/dl (6.0-8.3)
--- NOTE | 2022-11-06 16:43 | CT Scan Report ---
CT SCAN OF THE ABDOMEN AND PELVIS WITHOUT IV CONTRAST CLINICAL HISTORY: Left lower quadrant abdominal pain. COMPARISON STUDY: Abdominal CT dated 06/01/2017. PET CT dated 04/17/2020. TECHNIQUE: CT scan of the abdomen and pelvis is performed from the lung bases to the proximal femora. Images are reviewed in the axial, sagittal, and coronal planes. IV contrast was not administered for this examination as per the referring clinician. Note that the examination was performed in signific antly suboptimal fashion without oral and IV contrast. A dose lowering technique was utilized adherin g to the principles of ALARA. CT DOSE: 878.39 mGycm FINDINGS: Lung bases: The heart is normal in size and without pericardial effusion. A calcified granuloma is se en in the right middle lobe. The lung bases are otherwise clear noting mild bibasilar scarring/atelec tasis. There is a tiny hiatal hernia. Liver: The unenhanced liver is normal in size, contour, and attenuation. There is no intrahepatic ihsan iary ductal dilatation. Gallbladder: Unremarkable. Spleen: Normal in size and attenuation. Pancreas: The unenhanced pancreas is grossly unremarkable. Adrenal glands: Unremarkable. Kidneys: The left kidney is surgically absent. The unenhanced right kidney is normal in size and with out hydronephrosis. There is a 3 mm nonobstructing right renal calculus. No ureteral stone is seen. T here is no evidence of contour deforming renal mass lesion. Abdominal vasculature: There is advanced atherosclerotic calcification and mild ectasia of the abdomi nal aorta. An infrarenal IVC filter is in place. Bowel: There is postsurgical change from sigmoid colon resection with colocolonic anastomosis. No bow el obstruction is seen. Residual enteric contrast is seen throughout the colon. There is laxity of th e ventral abdominal wall with protrusion of abdominal contents. The appendix is not identified and r eported surgically absent. Peritoneum: There is no intraperitoneal free air or abdominal ascites. A midline surgical scar is not ed. Lymphadenopathy: None. Pelvic viscera: The prostate gland is enlarged and heterogeneous noting median lobe hypertrophy. The bladder wall is thickened/trabeculated indicating chronic outlet obstruction. There is a fat-containi ng left inguinal hernia. Skeletal structures: The skeletal structures are osteopenic. There is mild to moderate lumbosacral sp ondylosis. Bilateral pars defects are noted at L5. Degenerative change is noted in the sacroiliac jose g nts. No lytic or blastic lesions are seen. There are chronic/healed right-sided rib fractures. IMPRESSION: 1. Suboptimal examination without oral and IV contrast. 2. No acute infectious or inflammatory findings are identified in the abdomen or pelvis. 3. There is postsurgical change from left nephrectomy and sigmoid colon resection. 4. Right-sided nephrolithiasis. 5. Additional findings as above. ACT 112: Negative or not required by law. Electronically signed by: Juarez Munoz M.D. 11/06/2022 4:42 PM
[2022-11-06 19:59] LABS: Appearance Urine Clear (Clear); Bilirubin Urine Negative (Negative); Blood Urine Trace-intact (Negative); Color Urine Yellow; Glucose Urine UA Negative (Negative); Ketones Urine 1+ (Negative); Leukocyte Esterase Urine Trace (Negative); Nitrite Urine Negative (Negative); Protein Urine Negative (Negative); Specific Gravity Urine 1.015 (1.000-1.030); Urobilinogen Urine Negative (Negative)
[2022-11-06 20:07] LABS: Epithelial Cell Urine 0-5 /lpf (0-5); RBC Urine 0-4 /hpf (0-4)
[2022-11-06 20:08] LABS: Bacteria Urine Negative (Negative); WBC Urine 0-5 /hpf (0-5)
[2022-11-06] MEDS ORDERED: PANTOprazole 80 MG in DEXTROSE 5% 100 ML IV ONE (21:06)
[2022-11-06] MEDS ORDERED: PANTOPRAZOLE BOLUS/DRIP 1 EACH IV STA (21:06)
[2022-11-06] MEDS ORDERED: FAMOTIDINE 20MG IV PUSH 20 MG/5 ML SYR IV STA (21:06)
[2022-11-06] MEDS: PANTOprazole 40 MG in DEXTROSE 5% 100 ML IV SCH (22:12)
--- NOTE | 2022-11-06 22:52 | History & Physical Report ---
Date of Service November 06, 2022 Assessment & Plan (1) GI bleed: Plan: 66yo male PMHx colon cancer s/p 2 colon resections, colonic polyps, single kidney s/p nephrectomy, HTN, and insomnia presented with left lower quadrant abdominal pain. #GI bleed -presented with abd pain and nausea with dark stools and blood in diarrheal BM 1 day ago. Pt has h/o colon cancer x2 with last resection 2016. Colonoscopy in 2019 showed polyps which were removed and is likely due for colonoscopy around this time. Possible return of colon cancer versus upper GI bleed. -CT A/P: No acute infectious or inflammatory findings are identified in the abdomen or pelvis. Residual enteric contrast is seen throughout the colon which is odd since imaging was noncontrast. ?Consider repeat? -Famotidine x1 given in ED. Currently on protonix drip. Zofran prn for nausea. Dilaudid prn for pain. -NPO. Maintenance IVF. 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 He opted out of chemo s/p the first cycle. -Per Dr Willams (last seen 01/2018), CKD is multifactorial secondary to having 1 kidney, chemo exposure, and pre DM. He mentioned that pt's current meds are satisfactorily dosed. #Right sided nephrolithiasis -incidentally found on CT imaging. Denies dysuria and without CVA tenderness. -Monitor for now. #Insomnia -hold home zolpidem since NPO #HTN -not on medication at home DVT ppx: SCDs, avoid chemical due to suspected GI bleed FEN/GI: NPO, NSS @ 125ml Code Status: Full Dispo: med tele (2) Abdominal pain, LLQ (left lower quadrant): (3) Single kidney: (4) Insomnia: History of Present Illness Chief Complaint: GI bleed Primary Care Provider: Hortencia Woodruff MD 66yo male PMHx colon cancer s/p 2 colon resections, colonic polyps, single kidney s/p nephrectomy, HTN, and insomnia presented with left lower quadrant abdominal pain. Pain started yesterday afternoon and was subsequently followed by BM with diarrhea that was black with blood in it. Had associated nausea, dizziness, lightheadedness. Afterwards tried taking advil and peptol bismol which gave minimal relief. Abd pain migrated more diffusely. Had another BM this morning which was similar to yesterdays. Loss of appetite and has not eaten since yesterday. Denies headache, fevers, chills, diaphoresis, visual changes, neck pain, chest pain, breathing difficulties, vomiting, hematemesis, back pain, urinary symptoms, numbness, weakness, lymphadenopathy, rash, or other complaints. Of note his last colon resection was around 2016. Colonoscopy in 2019 showed polyps which were resected. He was to be due for another colonoscopy around this time. Allergies Allergy/AdvReac Type Severity Reaction Status Date / Time No Known Allergies Allergy Verified 08/12/22 13:31 Home Medications Medication Instructions Recorded Confirmed Type sildenafil 100 mg tablet 100 mg PO DAILY PRN sexual 09/24/21 08/12/22 Rx activity #10 tabs zolpidem 10 mg tablet 10 mg PO HS sleep #30 tabs 07/21/22 08/12/22 Rx triamcinolone acetonide 0.1 % 1 applic topical BID PRN rash #15 08/12/22 Rx topical cream grams Past Med/Surg History Medical History Alcohol abuse Anxiety Benign prostatic hyperplasia with urinary obstruction Borderline diabetes Chronic kidney disease, stage III (moderate) History of colon cancer twice----sx/chemo History of kidney cancer 2015 left kidney--sx/chemo Incisional hernia Metabolic encephalopathy Nephrolithiasis Pulmonary embolism 2014--unknown cause Sleep disturbances Ventral incisional hernia Surgical History Jam filter in place 2014 History of appendectomy History of colonoscopy with polypectomy History of incisional hernia repair History of lipoma off thoracic area of back History of partial surgical removal of colon x2-- for colon cancer History of repair of left rotator cuff History of tonsillectomy History of tooth extraction all teeth History of vascular access device [place] in left chest Hx of kidney removal left d/t cancer Family History Sister Breast cancer Mother Colorectal cancer Father Myocardial infarction Family history of diabetes mellitus Other No family history of adverse response to anesthesia Denies family history of Ovarian cancer Prostate cancer Social History Smoking Status: Current every day smoker Tobacco Type: Cigarettes Cigarettes Per Day: 10; Second Hand Exposure: No; Do You Dip or Chew Tobacco: No; Tobacco Cessation Education Requested by Patient: No Hx Alcohol Use: Yes Alcohol type: beer Alcohol Intake Frequency: 4 or More x per/Week Hx Substance Use: No Preferred Language: Estonian Communication Ability: Effective Senior Electronics Engineer Required: No Beliefs That Will Affect Care: None marital status: Single Current Living Situation: Alone current occupational status: retired How many Children do You have: 0 Other Information That Helps Us Care for You: No Feels Safe at Home: Yes Safety Concerns: Feels Safe At This Time Childhood Exposure to Second-Hand Smoke: Yes caffeine: Yes Dental Care, Regularly: No Physical Activity Frequency: Daily Seatbelt Use: sometimes Sunscreen Use: Yes Assistive Devices: None, Denture - Upper and Denture - Lower Review of Systems Review of Systems: All systems reviewed & are unremarkable except as noted in HPI & below Physical Exam Physical Exam: Constitutional: Well-developed, well-nourished patient, in no acute distress, pleasant and normal affect, intact memory. Vitals as above. HEENT: No scleral injection or discharge. Moist mucous membranes. Neck: Supple without lymphadenopathy or thyromegaly. Trachea midline. Lungs: Clear to auscultation bilaterally with good effort. No wheezing/rales/ronchi. Cardiac: Regular rate and rhythm.No murmurs.No extremity edema. 2+ distal peripheral pulses. Abdomen: Bowel sounds present. Soft. Moderate diffuse tenderness. Mildly distended.No guarding or rebound tenderness. No hepatosplenomegaly. MSK: No cyanosis or clubbing. Extremities motor strength 5/5. No CVA tenderness. Skin: Warm, dry. Neurologic:Grossly intact cranial nerves. PERRL. Results & Data Results & Data ([facility]) Vital Signs (Past 12 Hours) Vital Signs Temp Pulse Pulse Resp BP BP Pulse Ox 11/06/22 20:51 61 11/06/22 19:41 63 20 154/77 H 97 11/06/22 16:58 76 11/06/22 15:29 97 11/06/22 15:19 36.6 C 78 18 181/102 H 97 O2 Del Method 11/06/22 20:51 11/06/22 19:41 Room Air 11/06/22 16:58 11/06/22 15:29 Room Air 11/06/22 15:19 Room Air Laboratory Results Laboratory Results WBC 7.83 K/ul (4.8-10.8) 11/06/22 15:58 RBC 4.49 M/uL (4.70-6.10) L 11/06/22 15:58 Hgb 14.7 g/dl (14.0-18.0) 11/06/22 15:58 Hct 41.0 % (42.0-52.0) L 11/06/22 15:58 MCV 91.3 fL (80.0-100.0) 11/06/22 15:58 MCH 32.7 pg (25.0-34.0) 11/06/22 15:58 MCHC 35.9 g/dL (32.0-36.0) 11/06/22 15:58 RDW Std Deviation 41.7 fL (36.4-46.3) 11/06/22 15:58 RDW Coeff of [place] 12.5 % (11.5-14.5) 11/06/22 15:58 Plt Count 181 K/uL (130-400) 11/06/22 15:58 MPV 9.4 fL (9.4-12.4) 11/06/22 15:58 Immature Gran % (Auto) 0.3 % 11/06/22 15:58 Neut % (Auto) 75.6 % 11/06/22 15:58 Lymph % (Auto) 17.6 % 11/06/22 15:58 [place] % (Auto) 4.5 % 11/06/22 15:58 Eos % (Auto) 1.1 % 11/06/22 15:58 Baso % (Auto) 0.9 % 11/06/22 15:58 Neut # (Auto) 5.92 K/uL (1.40-6.50) 11/06/22 15:58 Lymph # (Auto) 1.38 K/uL (1.2-3.4) 11/06/22 15:58 [place] # (Auto) 0.35 K/uL (0.11-0.59) 11/06/22 15:58 Eos # (Auto) 0.09 K/uL (0-0.50) 11/06/22 15:58 Baso # (Auto) 0.07 K/uL (0-0.2) 11/06/22 15:58 Immature Gran # (Auto) 0.02 K/uL (0.01-0.20) 11/06/22 15:58 Sodium 137 mmol/L (136-145) 11/06/22 15:58 Potassium 4.2 mmol/L (3.5-5.1) 11/06/22 15:58 Chloride 102 mmol/L (98-107) 11/06/22 15:58 Carbon Dioxide 28 mmol/L (21-32) 11/06/22 15:58 Anion Gap 7 (3-11) 11/06/22 15:58 BUN 11 mg/dl (6-23) 11/06/22 15:58 Creatinine 1.33 mg/dl (0.6-1.4) 11/06/22 15:58 Est Cr Clr Drug Dosing 60.2 ml/min 11/06/22 15:58 Est GFR ( Amer) 63.2 ml/min 11/06/22 15:58 Est GFR (Non-Af Amer) 54.5 ml/min 11/06/22 15:58 BUN/Creatinine Ratio 8.3 (10-20) L 11/06/22 15:58 Glucose 113 mg/dl (70-99(Fasting)) H 11/06/22 15:58 Calcium 9.6 mg/dl (8.5-10.1) 11/06/22 15:58 Total Bilirubin 0.5 mg/dl (0.2-1.0) 11/06/22 15:58 AST 25 U/L (13-39) 11/06/22 15:58 ALT 26 U/L (7-52) 11/06/22 15:58 Alkaline Phosphatase 107 U/L (34-104) H 11/06/22 15:58 Total Protein 6.8 gm/dl (6.0-8.3) 11/06/22 15:58 Albumin 4.3 gm/dl (3.4-5.0) 11/06/22 15:58 Globulin 2.5 gm/dl (2.5-4.0) 11/06/22 15:58 Albumin/Globulin Ratio 1.7 (0.9-2) 11/06/22 15:58 Lipase 59 U/L (11-82) 11/06/22 15:58 Urine Color Yellow 11/06/22 19:40 Urine Appearance Clear (Clear) 11/06/22 19:40 Urine pH 7.0 (4.5-7.5) 11/06/22 19:40 Ur Specific Orange 1.015 (1.000-1.030) 11/06/22 19:40 Urine Protein Negative (Negative) 11/06/22 19:40 Urine Glucose (UA) Negative (Negative) 11/06/22 19:40 Urine Ketones 1+ (Negative) H 11/06/22 19:40 Urine Blood Trace-intact (Negative) H 11/06/22 19:40 Urine Nitrite Negative (Negative) 11/06/22 19:40 Urine Bilirubin Negative (Negative) 11/06/22 19:40 Urine Urobilinogen Negative (Negative) 11/06/22 19:40 Ur Leukocyte Esterase Trace (Negative) H 11/06/22 19:40 Urine RBC 0-4 /hpf (0-4) 11/06/22 19:40 Urine WBC 0-5 /hpf (0-5) 11/06/22 19:40 Ur Epithelial Cells 0-5 /lpf (0-5) 11/06/22 19:40 Urine Bacteria Negative (Negative) 11/06/22 19:40 Impressions Abdomen/Pelvis CT 11/06/22 15:29 CT SCAN OF THE ABDOMEN AND PELVIS WITHOUT IV CONTRAST CLINICAL HISTORY: Left lower quadrant abdominal pain. COMPARISON STUDY: Abdominal CT dated 06/01/2017. PET CT dated 04/17/2020. TECHNIQUE: CT scan of the abdomen and pelvis is performed from the lung bases to the proximal femora. Images are reviewed in the axial, sagittal, and coronal planes. IV contrast was not administered for this examination as per the referring clinician. Note that the examination was performed in significantly suboptimal fashion without oral and IV contrast. A dose lowering technique was utilized adhering to the principles of ALARA. CT DOSE: 878.39 mGycm FINDINGS: Lung bases: The heart is normal in size and without pericardial effusion. A calcified granuloma is seen in the right middle lobe. The lung bases are otherwise clear noting mild bibasilar scarring/atelectasis. There is a tiny hiatal hernia. Liver: The unenhanced liver is normal in size, contour, and attenuation. There is no intrahepatic biliary ductal dilatation. Gallbladder: Unremarkable. Spleen: Normal in size and attenuation. Pancreas: The unenhanced pancreas is grossly unremarkable. Adrenal glands: Unremarkable. Kidneys: The left kidney is surgically absent. The unenhanced right kidney is normal in size and without hydronephrosis. There is a 3 mm nonobstructing right renal calculus. No ureteral stone is seen. There is no evidence of contour deforming renal mass lesion. Abdominal vasculature: There is advanced atherosclerotic calcification and mild ectasia of the abdominal aorta. An infrarenal IVC filter is in place. Bowel: There is postsurgical change from sigmoid colon resection with colocolonic anastomosis. No bowel obstruction is seen. Residual enteric contrast is seen throughout the colon. There is laxity of the ventral abdominal wall with protrusion of abdominal contents. The appendix is not identified and reported surgically absent. Peritoneum: There is no intraperitoneal free air or abdominal ascites. A midline surgical scar is noted. Lymphadenopathy: None. Pelvic viscera: The prostate gland is enlarged and heterogeneous noting median lobe hypertrophy. The bladder wall is thickened/trabeculated indicating chronic outlet obstruction. There is a fat-containing left inguinal hernia. Skeletal structures: The skeletal structures are osteopenic. There is mild to moderate lumbosacral spondylosis. Bilateral pars defects are noted at L5. Degenerative change is noted in the sacroiliac joints. No lytic or blastic lesions are seen. There are chronic/healed right-sided rib fractures. IMPRESSION: 1. Suboptimal examination without oral and IV contrast. 2. No acute infectious or inflammatory findings are identified in the abdomen or pelvis. 3. There is postsurgical change from left nephrectomy and sigmoid colon resection. 4. Right-sided nephrolithiasis. 5. Additional findings as above. ACT 112: Negative or not required by law. Electronically signed by: Juarez Munoz M.D. 11/06/2022 4:42 PM Code Status & VTE Plan VTE Prophylaxis Plan VTE Prophylaxis will be ordered: Yes Supervising Physician Co-Signing Physician Notes Attending addendum: I have physically seen this patient, have supervised the medical residents activities, and agree with the H&P unless as otherwise noted. Assessment and Plan: Upper GI bleed/history of colon cancer s/p resection x2- Patient presents as dark stools since yesterday N.p.o. Hemoglobin is 14.7 H&H every 6 hours Continue Protonix drip begun in ED Ceftriaxone 1 g IV daily Consult gastroenterology IV fluids as noted CKD/history of high-grade urothelial CA status post left nephrectomy on - Creatinine 1.33 on admission Repeat labs after IV fluids Remaining orders and notations as noted Resident Activity Tracking Resident Involvement: Resident Care Provided Care Provided: Adult Hospital Medicine
[2022-11-06 22:57] LABS: Partial Thromboplastin Time 27.6 Seconds (21.0-31.0); Prothrombin Time 10.8 Seconds (9.0-12.0)
[2022-11-07] MEDS: HYDROmorphone INJ 0.5 MG/0.5 ML SYR IV PRN ×5 (01:17→21:04)
[2022-11-07 03:17] LABS: Basophils # (auto) 0.06 K/uL (0-0.2); Basophils % (auto) 0.8 %; Eosinophils # (auto) 0.23 K/uL (0-0.50); Eosinophils % (auto) 3.1 %; Hematocrit (blood only) 40.7 % (42.0-52.0); Immature Granulocytes # (auto) 0.02 K/uL (0.01-0.20); Immature Granulocytes % (auto) 0.3 %; Lymphocytes # (auto) 2.08 K/uL (1.2-3.4); Lymphocytes % (auto) 28.1 %; Mean Corpuscular Hemoglobin 32.5 pg (25.0-34.0); Mean Corpuscular Hgb Conc 34.4 g/dL (32.0-36.0); Mean Corpuscular Volume 94.4 fL (80.0-100.0); Mean Platelet Volume 9.4 fL (9.4-12.4); Monocytes # (auto) 0.44 K/uL (0.11-0.59); Neutrophils # (auto) 4.56 K/uL (1.40-6.50); Neutrophils % (auto) 61.7 %; Platelet Count 168 K/uL (130-400); RDW Coefficient of Variation 12.7 % (11.5-14.5); RDW Standard Deviation 43.7 fL (36.4-46.3); Red Blood Count 4.31 M/uL (4.70-6.10); White Blood Count 7.39 K/ul (4.8-10.8)
[2022-11-07] MEDS: ONDANSETRON INJ 2 MG/ML 2 ML VIAL IV PRN ×4 (03:17→21:04)
[2022-11-07 03:31] LABS: Albumin Globulin Ratio 1.5 (0.9-2); Bilirubin,Total 0.6 mg/dl (0.2-1.0); Calcium 9.2 mg/dl (8.5-10.1); Creatinine Clr Calc Pharmacy 58.5 ml/min; Est GFR (Non-African American) 52.6 ml/min; Globulin 2.6 gm/dl (2.5-4.0); Potassium 3.8 mmol/L (3.5-5.1); Total Protein 6.6 gm/dl (6.0-8.3)
[2022-11-07] MEDS: SODIUM CHLORIDE 0.9% 1000ML 1,000 ML IV SCH ×4 (03:43→23:05)
[2022-11-07] MEDS: cefTRIAXone SODIUM 2,000 MG in DEXTROSE 5% 50 ML IV SCH (03:51)
[2022-11-07] MEDS: PANTOprazole 40 MG in DEXTROSE 5% 100 ML IV SCH ×5 (04:52→19:36)
--- NOTE | 2022-11-07 08:01 | Hospitalist Progress Note ---
Date of Service November 07, 2022 Assessment & Plan (1) GI bleed: Plan: Presented with LLQ pain and several bloody/black bowel movements. Did have some Pepto for abdominal symptoms in the days leading up to hospitalization. Hemoccult pos in ER. BUN normal. Hgb 14.8 -> 13.0 (has also been receiving IV fluids). Transfuse if Hgb <7, hemodynamic instability, precipitous Hgb drop. Hx colon cancer x/p resection in 1994 and 2015; due for colonoscopy at this time. Started on PPI gtt, will continue for now given stools were reported as black before taking Pepto for symptom relief at home. Gastroenterology consulted and appreciate recommendations, possible EGD/colonoscopy after weekend. Strict bowel rest today with IV fluids, to start diet perhaps tomorrow. Possible that patient's presentation represents gastroenteritis that is resolving. (2) Benign essential hypertension: Plan: History of, not on medications at home. BP 150s/70s, hemodynamically stable. Defer any BP meds at this time especially in the setting of GIB, follow up PCP. (3) Abdominal pain, LLQ (left lower quadrant): Plan: Suspected to be secondary to #1. CTAP without contrast without acute findings, but suboptimal study. Consider CTAP with contrast if patient's symptoms aren't resolving, or still having unclear cause of pain. Holding off given CKD and one [place] [facility]. 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 Hx CKD III with baseline creatinine ~1.3, at baseline this admission. With hematuria on urinalysis this admission, will arrange outpatient Urology follow up. (5) Single kidney: Plan: See above. (6) Hematuria: Plan: Urology follow up will be needed on discharge as described above. Admission and Anticipated Discharge Date Admission Date: November 06, 2022 Subjective No acute events since admission. He endorses some intermittent lower abdominal pain relieved with PRN IV pain medications. No complaints of SOB, chest pain. No BM in last 24 hours. Review of Systems Review of Systems: All systems reviewed & are unremarkable except as noted in Subjective Physical Exam Constitutional: WD/WN, vitals as above Respiratory: normal respiratory effort, lungs clear to auscultation Cardiovascular: RRR, no murmur, no edema Gastrointestinal (Abdomen): normal bowel sounds, abdomen soft, mildly tender bilateral lower quadrants, no distension, no rebound Skin: no rashes, warm and dry Psychiatric: A+Ox3, euthymic affect Results & Data Results & Data ([facility]) Vital Signs (Past 12 Hours) Vital Signs Temp Pulse Pulse Resp BP BP BP 11/07/22 07:37 36.7 C 58 L 16 153/79 H 11/07/22 05:59 58 L 11/07/22 02:20 36.5 C 63 18 154/90 H 11/07/22 03:24 11/07/22 03:24 18 11/07/22 02:00 61 17 11/07/22 00:53 59 L 11/07/22 00:00 78 16 136/94 11/06/22 22:00 60 18 143/88 H 11/06/22 21:10 66 20 159/88 H 11/06/22 20:30 65 12 127/69 11/06/22 20:51 61 Pulse Ox O2 Del Method 11/07/22 07:37 94 Room Air 11/07/22 05:59 11/07/22 02:20 94 Room Air 11/07/22 03:24 Room Air 11/07/22 03:24 11/07/22 02:00 95 Room Air 11/07/22 00:53 11/07/22 00:00 98 Room Air 11/06/22 22:00 93 Room Air 11/06/22 21:10 95 Room Air 11/06/22 20:30 96 Room Air 11/06/22 20:51 PG Care Time/CCT Total # of Minutes Spent Total Time Spent with Patient: Total time spent is greater than 50% in coordination of care (as documented) at patient's floor/unit and/or counseling patient: Coding Level of Care Code 77301 SUB INP/OBS CARE 2/35MIN Diagnoses GI bleed K92.2 Benign essential hypertension I10 Abdominal pain, LLQ (left lower quadrant) R10.32 Chronic kidney disease, stage III (moderate) N18.3 Single kidney Z90.5 Hematuria R31.9
[2022-11-07 08:53] LABS: Hematocrit (blood only) 38.3 % (42.0-52.0); Hemoglobin 13.4 g/dl (14.0-18.0)
--- NOTE | 2022-11-07 09:54 | Gastrointestinal Consultation ---
Date of Consultation November 07, 2022 Assessment & Plan (1) GI bleed: Pleasant man with a history of colon cancer who is admitted with abdominal pain and "black stools with blood". I do think the black stools were related to the pepto he took in the two days prior to these symptoms starting. It is possible he had an acute enteritis with the pain and diarrhea and it seems to be resolving as he has not had a bowel movement in 24 hours. With his level of atherosclerotic vascular disease in his abdominal vessels he could be having some ischemic issues to his sigmoid colon. He is due for colonoscopy now and he would like one while here if possible due to lack of ride. The good thing is his H/H are stable so this isn't emergent. If done I would do EGD just to be certain no UGI cause for black stools. I will speak to Makenzie to see if this can be done early next week. It is also possible this could be done as an outpatient. History of Present Illness Reason for Consultation: bleeding Attending Physician: Chloé Morris, History of Present Illness 66 year old man with history of colon cancer first in 1994, had resection and chemo. In 2014- he had blood in his urine and "either had kidney cancer to colon or colon cancer to kidney" but he had resection again. He had his last colonoscopy by Dr. Grimm in 2019 and is due around now. He says on he had a diarrhea stool that he describes as black with some red blood. He was having lower abdominal pain at the time. Of note, he says that Wednesday and Wednesday he was having indigestion and took peptobismol--three doses those days. After he had the loose stool on he took another dosage. He had one stool that was black on Wednesday and has not had any since. He takes advil PM one pill every night but no other NSAIDs. Currently he is feeling better and wonders if he shouldn't have a laxative. He recall eating hot dogs and yi fries Wednesday night before this started. Allergies Allergy/AdvReac Type Severity Reaction Status Date / Time No Known Allergies Allergy Verified 08/12/22 13:31 Home Medications Medication Instructions Recorded Confirmed Type sildenafil 100 mg tablet 100 mg PO DAILY PRN sexual 01/05/22 11/23/22 Rx activity #10 tabs zolpidem 10 mg tablet 10 mg PO HS sleep #30 tabs 07/21/22 08/12/22 Rx triamcinolone acetonide 0.1 % 1 applic topical BID PRN rash #15 08/12/22 08/12/22 Rx topical cream grams Patient History Medical History Alcohol abuse Anxiety Benign prostatic hyperplasia with urinary obstruction Borderline diabetes Chronic kidney disease, stage III (moderate) History of colon cancer twice----sx/chemo History of kidney cancer 2014 left kidney--sx/chemo Incisional hernia Metabolic encephalopathy Nephrolithiasis Pulmonary embolism 2014--unknown cause Sleep disturbances Ventral incisional hernia Surgical History Jam filter in place 2014 History of appendectomy History of colonoscopy with polypectomy History of incisional hernia repair History of lipoma off thoracic area of back History of partial surgical removal of colon x2-- for colon cancer History of repair of left rotator cuff History of tonsillectomy History of tooth extraction all teeth History of vascular access device Aport in left chest Hx of kidney removal left d/t cancer Family History Sister Breast cancer Mother Colorectal cancer Father Myocardial infarction Family history of diabetes mellitus Other No family history of adverse response to anesthesia Denies family history of Ovarian cancer Prostate cancer Social History Smoking Status: Current every day smoker Tobacco Type: Cigarettes Cigarettes Per Day: 10; Second Hand Exposure: No; Do You Dip or Chew Tobacco: No; Tobacco Cessation Education Requested by Patient: No Hx Alcohol Use: Yes Alcohol type: beer Alcohol Intake Frequency: 4 or More x per/Week Hx Substance Use: No Preferred Language: Barbadian Communication Ability: Effective Bicycle Courier Required: No Beliefs That Will Affect Care: None marital status: Single Current Living Situation: Alone current occupational status: retired How many Children do You have: 0 Other Information That Helps Us Care for You: No Feels Safe at Home: Yes Safety Concerns: Feels Safe At This Time Childhood Exposure to Second-Hand Smoke: Yes caffeine: Yes Dental Care, Regularly: No Physical Activity Frequency: Daily Seatbelt Use: sometimes Sunscreen Use: Yes Assistive Devices: None, Denture - Upper and Denture - Lower Review of Systems Review of Systems: All systems reviewed & are unremarkable except as noted in HPI & below Physical Exam Constitutional: WD/WN, vitals as above no acute distress Eyes: PERRL, conjunctivae normal, anicteric sclerae ENMT: external ear and nose normal, oropharynx normal Neck: trachea midline, no thyromegaly Respiratory: normal respiratory effort, lungs clear to auscultation Cardiovascular: RRR, no murmur, no edema Gastrointestinal (Abdomen): Inspection/Auscultation: abdomen normal to inspection and normal bowel sounds Percussion/Palpation: + abdomen tender (Left lower abdomen) Musculoskeletal: Extremities: no cyanosis and no clubbing Skin: no rashes, warm and dry Neurologic: PERRL, EOMI, accommodation nl, no face palsy, no dysarthria Psychiatric: Orientation: alert and oriented x 3 Results & Data ([facility]) Vital Signs (Past 12 Hours) Vital Signs Temp Pulse Pulse Resp BP BP BP 11/07/22 07:37 36.7 C 58 L 16 153/79 H 11/07/22 05:59 58 L 11/07/22 02:20 36.5 C 63 18 154/90 H 11/07/22 03:24 11/07/22 03:24 18 11/07/22 02:00 61 17 11/07/22 00:53 59 L 11/07/22 00:00 78 16 136/94 11/06/22 22:00 60 18 143/88 H Pulse Ox O2 Del Method 11/07/22 07:37 94 Room Air 11/07/22 05:59 11/07/22 02:20 94 Room Air 11/07/22 03:24 Room Air 11/07/22 03:24 11/07/22 02:00 95 Room Air 11/07/22 00:53 11/07/22 00:00 98 Room Air 11/06/22 22:00 93 Room Air Laboratory Results 11/07/22 11/07/22 11/07/22 Range/Units 08:24 02:40 02:40 WBC 7.39 (4.8-10.8) K/ul RBC 4.31 L (4.70-6.10) M/uL Hgb 13.4 L 14.0 (14.0-18.0) g/dl Hct 38.3 L 40.7 L (42.0-52.0) % MCV 94.4 (80.0-100.0) fL MCH 32.5 (25.0-34.0) pg MCHC 34.4 (32.0-36.0) g/dL RDW Std Deviation 43.7 (36.4-46.3) fL RDW Coeff of [place] 12.7 (11.5-14.5) % Plt Count 168 (130-400) K/uL MPV 9.4 (9.4-12.4) fL Immature Gran % (Auto) 0.3 % Neut % (Auto) 61.7 % Lymph % (Auto) 28.1 % [place] % (Auto) 6.0 % Eos % (Auto) 3.1 % Baso % (Auto) 0.8 % Neut # (Auto) 4.56 (1.40-6.50) K/uL Lymph # (Auto) 2.08 (1.2-3.4) K/uL [place] # (Auto) 0.44 (0.11-0.59) K/uL Eos # (Auto) 0.23 (0-0.50) K/uL Baso # (Auto) 0.06 (0-0.2) K/uL Immature Gran # (Auto) 0.02 (0.01-0.20) K/uL PT (9.0-12.0) Seconds INR (0.9-1.1) APTT (21.0-31.0) Seconds PTT Ratio Sodium 134 L (136-145) mmol/L Potassium 3.8 (3.5-5.1) mmol/L Chloride 100 (98-107) mmol/L Carbon Dioxide 28 (21-32) mmol/L Anion Gap 6 (3-11) BUN 11 (6-23) mg/dl Creatinine 1.37 (0.6-1.4) mg/dl Est Cr Clr Drug Dosing 58.5 ml/min Est GFR ( Amer) 61.0 ml/min Est GFR (Non-Af Amer) 52.6 ml/min BUN/Creatinine Ratio 8.0 L (10-20) Glucose 99 (70-99(Fasting)) mg/dl Calcium 9.2 (8.5-10.1) mg/dl Total Bilirubin 0.6 (0.2-1.0) mg/dl AST 22 (13-39) U/L ALT 24 (7-52) U/L Alkaline Phosphatase 98 (34-104) U/L Total Protein 6.6 (6.0-8.3) gm/dl Albumin 4.0 (3.4-5.0) gm/dl Globulin 2.6 (2.5-4.0) gm/dl Albumin/Globulin Ratio 1.5 (0.9-2) Lipase (11-82) U/L Urine Color Urine Appearance (Clear) Urine pH (4.5-7.5) Ur Specific [place] (1.000-1.030) Urine Protein (Negative) Urine Glucose (UA) (Negative) Urine Ketones (Negative) Urine Blood (Negative) Urine Nitrite (Negative) Urine Bilirubin (Negative) Urine Urobilinogen (Negative) Ur Leukocyte Esterase (Negative) Urine RBC (0-4) /hpf Urine WBC (0-5) /hpf Ur Epithelial Cells (0-5) /lpf Urine Bacteria (Negative) SARS-CoV-2, RNA, NAAT (NEGATIVE) 11/06/22 11/06/22 11/06/22 Range/Units 22:42 21:21 19:40 WBC (4.8-10.8) K/ul RBC (4.70-6.10) M/uL Hgb (14.0-18.0) g/dl Hct (42.0-52.0) % MCV (80.0-100.0) fL MCH (25.0-34.0) pg MCHC (32.0-36.0) g/dL RDW Std Deviation (36.4-46.3) fL RDW Coeff of [place] (11.5-14.5) % Plt Count (130-400) K/uL MPV (9.4-12.4) fL Immature Gran % (Auto) % Neut % (Auto) % Lymph % (Auto) % [place] % (Auto) % Eos % (Auto) % Baso % (Auto) % Neut # (Auto) (1.40-6.50) K/uL Lymph # (Auto) (1.2-3.4) K/uL [place] # (Auto) (0.11-0.59) K/uL Eos # (Auto) (0-0.50) K/uL Baso # (Auto) (0-0.2) K/uL Immature Gran # (Auto) (0.01-0.20) K/uL PT 10.8 (9.0-12.0) Seconds INR 1.0 (0.9-1.1) APTT 27.6 (21.0-31.0) Seconds PTT Ratio 1.0 Sodium (136-145) mmol/L Potassium (3.5-5.1) mmol/L Chloride (98-107) mmol/L Carbon Dioxide (21-32) mmol/L Anion Gap (3-11) BUN (6-23) mg/dl Creatinine (0.6-1.4) mg/dl Est Cr Clr Drug Dosing ml/min Est GFR ( Amer) ml/min Est GFR (Non-Af Amer) ml/min BUN/Creatinine Ratio (10-20) Glucose (70-99(Fasting)) mg/dl Calcium (8.5-10.1) mg/dl Total Bilirubin (0.2-1.0) mg/dl AST (13-39) U/L ALT (7-52) U/L Alkaline Phosphatase (34-104) U/L Total Protein (6.0-8.3) gm/dl Albumin (3.4-5.0) gm/dl Globulin (2.5-4.0) gm/dl Albumin/Globulin Ratio (0.9-2) Lipase (11-82) U/L Urine Color Yellow Urine Appearance Clear (Clear) Urine pH 7.0 (4.5-7.5) Ur Specific [place] 1.015 (1.000-1.030) Urine Protein Negative (Negative) Urine Glucose (UA) Negative (Negative) Urine Ketones 1+ H (Negative) Urine Blood Trace-intact H (Negative) Urine Nitrite Negative (Negative) Urine Bilirubin Negative (Negative) Urine Urobilinogen Negative (Negative) Ur Leukocyte Esterase Trace H (Negative) Urine RBC 0-4 (0-4) /hpf Urine WBC 0-5 (0-5) /hpf Ur Epithelial Cells 0-5 (0-5) /lpf Urine Bacteria Negative (Negative) SARS-CoV-2, RNA, NAAT NEGATIVE (NEGATIVE) 11/06/22 11/06/22 Range/Units 15:58 15:58 WBC 7.83 (4.8-10.8) K/ul RBC 4.49 L (4.70-6.10) M/uL Hgb 14.7 (14.0-18.0) g/dl Hct 41.0 L (42.0-52.0) % MCV 91.3 (80.0-100.0) fL MCH 32.7 (25.0-34.0) pg MCHC 35.9 (32.0-36.0) g/dL RDW Std Deviation 41.7 (36.4-46.3) fL RDW Coeff of [place] 12.5 (11.5-14.5) % Plt Count 181 (130-400) K/uL MPV 9.4 (9.4-12.4) fL Immature Gran % (Auto) 0.3 % Neut % (Auto) 75.6 % Lymph % (Auto) 17.6 % [place] % (Auto) 4.5 % Eos % (Auto) 1.1 % Baso % (Auto) 0.9 % Neut # (Auto) 5.92 (1.40-6.50) K/uL Lymph # (Auto) 1.38 (1.2-3.4) K/uL [place] # (Auto) 0.35 (0.11-0.59) K/uL Eos # (Auto) 0.09 (0-0.50) K/uL Baso # (Auto) 0.07 (0-0.2) K/uL Immature Gran # (Auto) 0.02 (0.01-0.20) K/uL PT (9.0-12.0) Seconds INR (0.9-1.1) APTT (21.0-31.0) Seconds PTT Ratio Sodium 137 (136-145) mmol/L Potassium 4.2 (3.5-5.1) mmol/L Chloride 102 (98-107) mmol/L Carbon Dioxide 28 (21-32) mmol/L Anion Gap 7 (3-11) BUN 11 (6-23) mg/dl Creatinine 1.33 (0.6-1.4) mg/dl Est Cr Clr Drug Dosing 60.2 ml/min Est GFR ( Amer) 63.2 ml/min Est GFR (Non-Af Amer) 54.5 ml/min BUN/Creatinine Ratio 8.3 L (10-20) Glucose 113 H (70-99(Fasting)) mg/dl Calcium 9.6 (8.5-10.1) mg/dl Total Bilirubin 0.5 (0.2-1.0) mg/dl AST 25 (13-39) U/L ALT 26 (7-52) U/L Alkaline Phosphatase 107 H (34-104) U/L Total Protein 6.8 (6.0-8.3) gm/dl Albumin 4.3 (3.4-5.0) gm/dl Globulin 2.5 (2.5-4.0) gm/dl Albumin/Globulin Ratio 1.7 (0.9-2) Lipase 59 (11-82) U/L Urine Color Urine Appearance (Clear) Urine pH (4.5-7.5) Ur Specific [place] (1.000-1.030) Urine Protein (Negative) Urine Glucose (UA) (Negative) Urine Ketones (Negative) Urine Blood (Negative) Urine Nitrite (Negative) Urine Bilirubin (Negative) Urine Urobilinogen (Negative) Ur Leukocyte Esterase (Negative) Urine RBC (0-4) /hpf Urine WBC (0-5) /hpf Ur Epithelial Cells (0-5) /lpf Urine Bacteria (Negative) SARS-CoV-2, RNA, NAAT (NEGATIVE) Diagnostic Findings Abdomen/Pelvis CT 11/06/22 15:29 CT SCAN OF THE ABDOMEN AND PELVIS WITHOUT IV CONTRAST CLINICAL HISTORY: Left lower quadrant abdominal pain. COMPARISON STUDY: Abdominal CT dated 06/01/2017. PET CT dated 04/17/2020. TECHNIQUE: CT scan of the abdomen and pelvis is performed from the lung bases to the proximal femora. Images are reviewed in the axial, sagittal, and coronal planes. IV contrast was not administered for this examination as per the referring clinician. Note that the examination was performed in significantly suboptimal fashion without oral and IV contrast. A dose lowering technique was utilized adhering to the principles of ALARA. CT DOSE: 878.39 mGycm FINDINGS: Lung bases: The heart is normal in size and without pericardial effusion. A calcified granuloma is seen in the right middle lobe. The lung bases are otherwise clear noting mild bibasilar scarring/atelectasis. There is a tiny hiatal hernia. Liver: The unenhanced liver is normal in size, contour, and attenuation. There is no intrahepatic biliary ductal dilatation. Gallbladder: Unremarkable. Spleen: Normal in size and attenuation. Pancreas: The unenhanced pancreas is grossly unremarkable. Adrenal glands: Unremarkable. Kidneys: The left kidney is surgically absent. The unenhanced right kidney is normal in size and without hydronephrosis. There is a 3 mm nonobstructing right renal calculus. No ureteral stone is seen. There is no evidence of contour deforming renal mass lesion. Abdominal vasculature: There is advanced atherosclerotic calcification and mild ectasia of the abdominal aorta. An infrarenal IVC filter is in place. Bowel: There is postsurgical change from sigmoid colon resection with colocolonic anastomosis. No bowel obstruction is seen. Residual enteric contrast is seen throughout the colon. There is laxity of the ventral abdominal wall with protrusion of abdominal contents. The appendix is not identified and reported surgically absent. Peritoneum: There is no intraperitoneal free air or abdominal ascites. A midline surgical scar is noted. Lymphadenopathy: None. Pelvic viscera: The prostate gland is enlarged and heterogeneous noting median lobe hypertrophy. The bladder wall is thickened/trabeculated indicating chronic outlet obstruction. There is a fat-containing left inguinal hernia. Skeletal structures: The skeletal structures are osteopenic. There is mild to moderate lumbosacral spondylosis. Bilateral pars defects are noted at L5. Degenerative change is noted in the sacroiliac joints. No lytic or blastic lesions are seen. There are chronic/healed right-sided rib fractures. IMPRESSION: 1. Suboptimal examination without oral and IV contrast. 2. No acute infectious or inflammatory findings are identified in the abdomen or pelvis. 3. There is postsurgical change from left nephrectomy and sigmoid colon resection. 4. Right-sided nephrolithiasis. 5. Additional findings as above. ACT 112: Negative or not required by law. Electronically signed by: Juarez Munoz M.D. 11/06/2022 4:42 PM
--- NOTE | 2022-11-07 11:44 | Electrocardiogram Report ---
Test Reason : Blood Pressure : / mmHG Vent. Rate : 058 BPM Atrial Rate : 058 BPM P-R Int : 178 ms QRS Dur : 082 ms QT Int : 434 ms P-R-T Axes : 032 070 069 degrees QTc Int : 426 ms Sinus bradycardia Otherwise normal ECG When compared with ECG of 01-OCT-2017 10:44, No significant change was found Confirmed by Daron Moran ([id number]) on 11/07/2022 11:43:40 AM Referred By: REFERRED SELF Confirmed By:Daron Moran
[2022-11-07] MEDS: ACETAMINOPHEN 1,000 MG/100 ML VIAL IV PRN (14:03)
[2022-11-07 14:41] LABS: Hematocrit (blood only) 37.2 % (42.0-52.0)
[2022-11-07] MEDS ORDERED: SODIUM CHLORIDE 0.65% NA SOLN 45 ML (OCEAN) ONE (18:23)
--- NOTE | 2022-11-07 20:05 | Billing Data ---
Date of Service November 07, 2022 Coding Level of Care Code 17032 INT INP/OBS CARE
[2022-11-08] MEDS: PANTOprazole 40 MG in DEXTROSE 5% 100 ML IV SCH ×5 (00:45→21:18)
[2022-11-08] MEDS: HYDROmorphone INJ 0.5 MG/0.5 ML SYR IV PRN ×3 (00:45→22:42)
[2022-11-08] MEDS: cefTRIAXone SODIUM 2,000 MG in DEXTROSE 5% 50 ML IV SCH (05:34)
[2022-11-08] MEDS: SODIUM CHLORIDE 0.9% 1000ML 1,000 ML IV SCH (06:21)
[2022-11-08] MEDS: ACETAMINOPHEN 1,000 MG/100 ML VIAL IV PRN (07:35)
[2022-11-08 07:52] LABS: Basophils # (auto) 0.07 K/uL (0-0.2); Eosinophils % (auto) 2.8 %; Hemoglobin 12.5 g/dl (14.0-18.0); Immature Granulocytes # (auto) 0.02 K/uL (0.01-0.20); Immature Granulocytes % (auto) 0.3 %; Lymphocytes # (auto) 1.74 K/uL (1.2-3.4); Lymphocytes % (auto) 24.8 %; Mean Corpuscular Hemoglobin 32.4 pg (25.0-34.0); Mean Corpuscular Hgb Conc 34.7 g/dL (32.0-36.0); Mean Corpuscular Volume 93.3 fL (80.0-100.0); Mean Platelet Volume 9.3 fL (9.4-12.4); Monocytes # (auto) 0.38 K/uL (0.11-0.59); Monocytes % (auto) 5.4 %; Neutrophils # (auto) 4.62 K/uL (1.40-6.50); Neutrophils % (auto) 65.7 %; Platelet Count 151 K/uL (130-400); RDW Coefficient of Variation 12.3 % (11.5-14.5); RDW Standard Deviation 42.3 fL (36.4-46.3); Red Blood Count 3.86 M/uL (4.70-6.10); White Blood Count 7.03 K/ul (4.8-10.8)
[2022-11-08 08:00] LABS: Albumin Globulin Ratio 1.6 (0.9-2); Albumin Level 3.5 gm/dl (3.4-5.0); BUN Creatinine Ratio 7.2 (10-20); Bilirubin,Total 0.4 mg/dl (0.2-1.0); Calcium 8.6 mg/dl (8.5-10.1); Est GFR (African American) 60.5 ml/min; Est GFR (Non-African American) 52.2 ml/min; Globulin 2.2 gm/dl (2.5-4.0); Potassium 4.1 mmol/L (3.5-5.1); Total Protein 5.7 gm/dl (6.0-8.3)
--- NOTE | 2022-11-08 08:14 | Hospitalist Progress Note ---
Date of Service November 08, 2022 Assessment & Plan (1) GI bleed: Plan: Presented with LLQ pain and several bloody/black bowel movements. Did have some Pepto for abdominal symptoms in the days leading up to hospitalization. Hemoccult pos in ER. BUN normal. Hgb 14.8 -> 12.5 (has been receiving IV fluids). Transfuse if Hgb <7, hemodynamic instability, precipitous Hgb drop. Hx colon cancer x/p resection in 1994 and 2015; due for colonoscopy at this time given GI history. Possible that patient's presentation represents gastroenteritis that is resolving. Started on PPI gtt, will continue for now until EGD given stools were reported as black before taking Pepto for symptom relief at home. Gastroenterology consulted and appreciate recommendations, for EGD/colonoscopy by [facility] tomorrow. Prep initiated and NPO after midnight. (2) Benign essential hypertension: Plan: History of, not on medications at home. BP 150s/70s, hemodynamically stable. Defer any BP meds at this time especially in the setting of GIB, follow up PCP. (3) Abdominal pain, LLQ (left lower quadrant): Plan: Suspected to be secondary to #1. CTAP without contrast without acute findings, but suboptimal study. Consider CTAP with contrast if patient's symptoms aren't resolving, or still having unclear cause of pain. Holding off given CKD and one [place] kidney. Dilaudid ordered IV as needed for pain not controlled by Tylenol. 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 Hx CKD III with baseline creatinine ~1.3, at baseline this admission to date. Daily BMP. With hematuria on urinalysis this admission, will arrange outpatient Urology follow up. (5) Single kidney: Plan: See above. (6) Hematuria: Plan: Urology follow up will be needed on discharge as described above. Admission and Anticipated Discharge Date Admission Date: November 06, 2022 Subjective No overnight events, but does still have bilateral lower abdominal discomfort. No nausea, and tolerated clears for lunch. Review of Systems Review of Systems: All systems reviewed & are unremarkable except as noted in Subjective Physical Exam Constitutional: WD/WN, vitals as above Respiratory: normal respiratory effort, lungs clear to auscultation Cardiovascular: RRR, no murmur, no edema Gastrointestinal (Abdomen): normal bowel sounds, abdomen soft, mildly tender bilateral lower quadrants, no distension, no rebound Skin: no rashes, warm and dry Psychiatric: A+Ox3, euthymic affect Results & Data Results & Data ([facility]) Vital Signs (Past 12 Hours) Vital Signs Temp Pulse Pulse Resp BP BP Pulse Ox 11/08/22 06:00 57 L 11/08/22 07:30 11/08/22 07:17 36.8 C 61 16 135/85 98 11/08/22 02:53 36.7 C 57 L 18 157/78 H 96 11/07/22 23:42 61 11/07/22 23:05 36.6 C 62 18 167/70 H 98 11/07/22 23:12 O2 Del Method 11/08/22 06:00 11/08/22 07:30 Room Air 11/08/22 07:17 Room Air 11/08/22 02:53 Room Air 11/07/22 23:42 11/07/22 23:05 Room Air 11/07/22 23:12 Room Air PG Care Time/CCT Total # of Minutes Spent Total Time Spent with Patient: Total time spent is greater than 50% in coordination of care (as documented) at patient's floor/unit and/or counseling patient: Coding Level of Care Code 77781 SUB INP/OBS CARE 2/35MIN Diagnoses GI bleed K92.2 Benign essential hypertension I10 Abdominal pain, LLQ (left lower quadrant) R10.32 Chronic kidney disease, stage III (moderate) N18.3 Single kidney Z90.5 Hematuria R31.9
[2022-11-08] MEDS ORDERED: ACETAMINOPHEN 500 MG TAB PO SCH (08:30)
--- NOTE | 2022-11-08 09:57 | Gastroenterology Progress Note ---
Date of Service November 08, 2022 Assessment & Plan (1) GI bleed: Plan: I do think his problems were self-limited but agree that procedures are rainey. Will prep for tomorrow. I spoke with Maknezie and they will do procedures. Admission and Anticipated Discharge Date Admission Date: November 06, 2022 Subjective Feeling better. Would like procedures done tomorrow Physical Exam Constitutional: WD/WN, vitals as above Results & Data ([facility]) Vital Signs (Past 12 Hours) Vital Signs Temp Pulse Pulse Resp BP BP Pulse Ox 11/08/22 06:00 57 L 11/08/22 07:30 11/08/22 07:17 36.8 C 61 16 135/85 98 11/08/22 02:53 36.7 C 57 L 18 157/78 H 96 11/07/22 23:42 61 11/07/22 23:05 36.6 C 62 18 167/70 H 98 11/07/22 23:12 O2 Del Method 11/08/22 06:00 11/08/22 07:30 Room Air 11/08/22 07:17 Room Air 11/08/22 02:53 Room Air 11/07/22 23:42 11/07/22 23:05 Room Air 11/07/22 23:12 Room Air
[2022-11-08] MEDS: ONDANSETRON INJ 2 MG/ML 2 ML VIAL IV PRN ×2 (10:37→22:42)
[2022-11-08] MEDS: ACETAMINOPHEN 500 MG TAB PO SCH (15:18)
[2022-11-08] MEDS ORDERED: LAVAGE SOLUTION 4000ML PO SCH (16:00)
[2022-11-09] MEDS: ACETAMINOPHEN 500 MG TAB PO SCH ×3 (00:30→15:26)
[2022-11-09] MEDS: PANTOprazole 40 MG in DEXTROSE 5% 100 ML IV SCH ×2 (02:10→06:27)
[2022-11-09] MEDS ORDERED: HEPARIN 100 UNIT/ML 5ML FLUSH FLUSH PRN (03:02)
[2022-11-09] MEDS: ONDANSETRON INJ 2 MG/ML 2 ML VIAL IV PRN (07:34)
[2022-11-09] MEDS: HYDROmorphone INJ 0.5 MG/0.5 ML SYR IV PRN ×2 (07:35→10:57)
--- NOTE | 2022-11-09 08:15 | Gastroenterology Progress Note ---
Date of Service November 09, 2022 Assessment & Plan (1) GI bleed: Plan: Plan for EGD/Colonoscopy Admission and Anticipated Discharge Date Admission Date: November 06, 2022 Subjective Patient prepped, no furhter bleeding Physical Exam Constitutional: WD/WN, vitals as above Cardiovascular: RRR, no murmur, no edema Gastrointestinal (Abdomen): normal bowel sounds, soft, nontender, no hepatosplenomegaly Results & Data ([facility]) Vital Signs (Past 12 Hours) Vital Signs Temp Pulse Pulse Resp BP BP Pulse Ox 11/09/22 07:47 36.7 C 56 L 20 135/72 93 11/09/22 07:28 37 C 68 16 116/77 95 11/09/22 03:09 36.5 C 54 L 18 129/64 95 11/08/22 23:49 36.7 C 60 18 151/77 H 93 11/08/22 23:44 65 O2 Del Method 11/09/22 07:47 Room Air 11/09/22 07:28 Room Air 11/09/22 03:09 Room Air 11/08/22 23:49 Room Air 11/08/22 23:44
--- NOTE | 2022-11-09 08:19 | Anesthesiology Consultation ---
Date of Service November 09, 2022 Assessment & Plan Chart Review Chart Review: Acceptable Risk for Surgery and Patient NOT seen in Pre Admission Testing Consults Requested none ASA ASA4 Proposed Anesthesia Anesthesia Type: MAC Risk / Benefits Reviewed With: PT / POA / Parent / Guardian, Accepts Plan and Informed Consent Obtained History Surgery Operation Date: 11/09/22 17:15 Proposed Procedures p Colonoscopy EGD Dr Salazar - Emmanuel Salazar MD Height/Weight Height: 5 ft 9 in Weight: 94.3 kg Allergies Allergy/AdvReac Type Severity Reaction Status Date / Time No Known Allergies Allergy Verified 08/12/22 13:31 Medications Home Medications Medication Instructions Recorded Confirmed Last Taken sildenafil 100 mg tablet 100 mg PO DAILY PRN sexual 09/24/21 08/12/22 Unknown activity #10 tabs zolpidem 10 mg tablet 10 mg PO HS sleep #30 tabs 07/21/22 08/12/22 Unknown triamcinolone acetonide 0.1 % 1 applic topical BID PRN rash #15 08/12/22 08/12/22 Unknown topical cream grams Active Medications Generic Name Dose Route Start Last Admin Trade Name Freq PRN Reason Stop Dose Admin Acetaminophen 1,000 mg 11/08/22 15:30 11/09/22 07:34 Acetaminophen 500 Mg Tab PO 12/08/22 15:29 Not Given Q8H ELA Hydromorphone HCl 0.5 mg 11/08/22 08:04 11/09/22 07:35 Hydromorphone Inj 0.5 Mg/0.5 Ml Syr IV 11/20/22 15:28 0.5 mg Q2H PRN Administration moderate to severe pain Pantoprazole Sodium 40 mg/ 100 mls @ 20 mls/hr 11/06/22 21:30 11/09/22 07:57 Dextrose IV 12/06/22 21:29 0 mg/hr Q5H ELA 0 mls/hr Infusion 8 MG/HR Ondansetron HCl 4 mg 11/07/22 02:31 11/09/22 07:34 Ondansetron Inj 2 Mg/Ml 2 Ml Vial IV 12/07/22 02:30 4 mg Q6H PRN Administration Nausea NPO Date Last Intake of Fluids: 11/09/22 Time Last Intake of Fluids: 01:30 Date Last Intake of Solids: 02/18/23 Time Last Intake of Solids: 18:00 Past Medical History Medical History Alcohol abuse Anxiety Benign prostatic hyperplasia with urinary obstruction Borderline diabetes Chronic kidney disease, stage III (moderate) History of colon cancer twice----sx/chemo History of kidney cancer 2015 left kidney--sx/chemo Incisional hernia Metabolic encephalopathy Nephrolithiasis Pulmonary embolism 2014--unknown cause Sleep disturbances Ventral incisional hernia Exercise / Class Metabolic Activity II 4-5 Yardwork/Stairs/Walk up hill Past Family History Family History Sister Breast cancer Mother Colorectal cancer Father Myocardial infarction Family history of diabetes mellitus Other No family history of adverse response to anesthesia Denies family history of Ovarian cancer Prostate cancer Past Surgical History Surgical History [place] filter in place 2014 History of appendectomy History of colonoscopy with polypectomy History of incisional hernia repair History of lipoma off thoracic area of back History of partial surgical removal of colon x2-- for colon cancer History of repair of left rotator cuff History of tonsillectomy History of tooth extraction all teeth History of vascular access device [place] in left chest Hx of kidney removal left d/t cancer Past Anesthesia History No Hx of Anesthesia Complications and No Family Hx of Anesthesia Complications History of PONV No Hx of PONV and No Hx of Motion Sickness Social History Smoking Status: Current every day smoker tobacco type: cigarettes Smoking cigarettes per day: 10 Do You Dip or Chew Tobacco: No Hx Alcohol Use: Yes Alcohol type: beer alcohol intake frequency: a few times a month Hx Substance Use: No substance use type: does not use Physical Exam Vital Signs Last Vital Signs Temp 36.7 C 11/09/22 07:47 Pulse 56 L 11/09/22 07:47 Resp 20 11/09/22 07:47 BP 135/72 11/09/22 07:47 Pulse Ox 93 11/09/22 07:47 O2 Del Method Room Air 11/09/22 07:47 Constitutional + obese; no acute distress ENMT Mouth: + dentition abnormality, + dentures and + edentulous Thyromental Distance: > or= 3.5 Finger Breadths Mallampati Class: II Neck normal visual inspection, trachea midline and + facial hair; neck extension not limited Respiratory normal respiratory effort Auscultation: lungs clear to auscultation bilaterally and + diminished lung soun ds Cardiovascular Rate/Rhythm: regular rate and regular rhythm Heart Sounds: no murmur Vessels: no carotid bruit Musculoskeletal Spine: normal cervical ROM and no pain with cervical ROM Extremities: full ROM of extremities Neurologic moves all extremities Motor/Sensory: no sensory deficit Psychiatric Orientation: alert and oriented x 3 Testing Laboratory Results 11/08/22 07:21 11/08/22 07:21 PT 10.8 Seconds (9.0-12.0) 11/06/22 21:21 INR 1.0 (0.9-1.1) 11/06/22 21:21 APTT 27.6 Seconds (21.0-31.0) 11/06/22 21:21 Urine Color Yellow 11/06/22 19:40 Urine Appearance Clear (Clear) 11/06/22 19:40 Urine pH 7.0 (4.5-7.5) 11/06/22 19:40 Ur Specific [place] 1.015 (1.000-1.030) 11/06/22 19:40 Urine Protein Negative (Negative) 11/06/22 19:40 Urine Glucose (UA) Negative (Negative) 11/06/22 19:40 Urine Ketones 1+ (Negative) H 11/06/22 19:40 Urine Nitrite Negative (Negative) 11/06/22 19:40 Ur Leukocyte Esterase Trace (Negative) H 11/06/22 19:40 Urine RBC 0-4 /hpf (0-4) 11/06/22 19:40 Urine WBC 0-5 /hpf (0-5) 11/06/22 19:40 Ur Epithelial Cells 0-5 /lpf (0-5) 11/06/22 19:40 Electrocardiogram Date: 11/07/22 Findings: + SB @ (@ 58)
[2022-11-09] MEDS ORDERED: ATROPINE SULFATE 0.1 MG/ML 10ML SYR IV PRN (08:21)
[2022-11-09] MEDS ORDERED: ePHEDrine sulfate 50 MG/ML AMP IV PRN (08:21)
[2022-11-09 08:41] LABS: Hematocrit (blood only) 35.1 % (42.0-52.0); Hemoglobin 12.5 g/dl (14.0-18.0); Mean Corpuscular Hemoglobin 32.5 pg (25.0-34.0); Mean Corpuscular Hgb Conc 35.6 g/dL (32.0-36.0); Mean Corpuscular Volume 91.2 fL (80.0-100.0); Mean Platelet Volume 9.7 fL (9.4-12.4); Platelet Count 155 K/uL (130-400); RDW Coefficient of Variation 12.5 % (11.5-14.5); RDW Standard Deviation 41.1 fL (36.4-46.3); Red Blood Count 3.85 M/uL (4.70-6.10)
[2022-11-09] MEDS ORDERED: PROPOFOL IV EMULSION 10 MG/ML 20 ML VIAL IV ONE ×2 (08:48)
[2022-11-09] MEDS ORDERED: LIDOCAINE 2% MPF LOCAL 5 ML VIAL INFIL ONE (08:48)
--- NOTE | 2022-11-09 08:53 | GI REPORT ---
Patient Name: Jan Alejandro Procedure Date: 11/09/2022 8:15 AM Date of : 1955 Admit Type: Inpatient Age: 66 Gender: Male Attending MD: Emmanuel Salazar MD, Procedure: Upper GI endoscopy Providers: Emmanuel Salazar MD Referring MD: Nettie Uriostegui Md Indications: Melena Medicines: Monitored Anesthesia Care Complications: No immediate complications. Estimated blood loss: None. Estimated Blood Loss: Estimated blood loss: none. Procedure: Pre-Anesthesia Assessment: - Pre-Anesthesia Assessment: - Prior to the procedure, a History and Physical was performed, and patient medications, allergies and sensitivities were reviewed. The patient's tolerance of previous anesthesia was reviewed. Please see [employer] for complete details. - The risks and benefits of the procedure and the sedation options and risks were discussed with the patient. All questions were answered and informed consent was obtained. - Patient identification and proposed procedure were verified prior to the procedure by the physician and the nurse. The procedure was verified in the pre-procedure area in the procedure room. After obtaining informed consent, the endoscope was passed carefully and meticuously under direct vision and only advanced when the lumen was clearly identified, C02 insuflation was utilized throughout the entirity of the procedure. Throughout the procedure, the patient's blood pressure, pulse, and oxygen saturations were monitored continuously. After obtaining informed consent, the endoscope was passed under direct vision. Throughout the procedure, the patient's blood pressure, pulse, and oxygen saturations were monitored continuously. The Endoscope was introduced through the mouth, and advanced to the second part of duodenum. The upper GI endoscopy was accomplished without difficulty. The patient tolerated the procedure well. Findings: A hiatal hernia was present. The entire examined stomach was normal. Biopsies were taken with a cold forceps for Helicobacter pylori testing. Localized mild inflammation characterized by erythema was found in the duodenal bulb. Biopsies were taken with a cold forceps for histology. No signs of recent or ongoing GI bleeding Impression: - Hiatal hernia. - Normal stomach. Biopsied. - Duodenitis. Biopsied. Recommendation: - Await pathology results. - Perform a colonoscopy today. - Use Prilosec (omeprazole) 40 mg PO daily. Emmanuel Salazar MD 11/09/2022 8:52:43 AM This report has been signed electronically. Note Initiated On: 11/09/2022 8:15 AM Number of Addenda: 0 I attest to the content of the Intraoperative Record and orders documented therein, exceptions below {[id number]}
[2022-11-09 08:55] LABS: BUN Creatinine Ratio 6.3 (10-20); Calcium 8.8 mg/dl (8.5-10.1); Creatinine Clr Calc Pharmacy 55.7 ml/min; Est GFR (African American) 57.4 ml/min; Est GFR (Non-African American) 49.5 ml/min; Potassium 3.6 mmol/L (3.5-5.1)
--- NOTE | 2022-11-09 08:55 | GI REPORT ---
Patient Name: Jan Alejandro Procedure Date: 11/09/2022 8:14 AM Date of : 1955 Admit Type: Inpatient Age: 66 Gender: Male Attending MD: Emmanuel Salazar MD, Procedure: Colonoscopy Providers: Emmanuel Salazar MD Referring MD: Nettie Uriostegui Md Indications: Melena, History of Colon Cancer Medicines: Monitored Anesthesia Care Complications: No immediate complications. Estimated blood loss: None. Estimated Blood Loss: Estimated blood loss: none. Procedure: Pre-Anesthesia Assessment: - Pre-Anesthesia Assessment: - Prior to the procedure, a History and Physical was performed, and patient medications, allergies and sensitivities were reviewed. The patient's tolerance of previous anesthesia was reviewed. Please see [employer] for complete details. - The risks and benefits of the procedure and the sedation options and risks were discussed with the patient. All questions were answered and informed consent was obtained. - Patient identification and proposed procedure were verified prior to the procedure by the physician and the nurse. The procedure was verified in the pre-procedure area in the procedure room. After obtaining informed consent, the endoscope was passed carefully and meticuously under direct vision and only advanced when the lumen was clearly identified, C02 insuflation was utilized throughout the entirity of the procedure. Throughout the procedure, the patient's blood pressure, pulse, and oxygen saturations were monitored continuously. After I obtained informed consent, the scope was passed under direct vision. Throughout the procedure, the patient's blood pressure, pulse, and oxygen saturations were monitored continuously. The scope was introduced through the anus and advanced to the cecum, identified by appendiceal orifice and ileocecal valve. The colonoscopy was performed without difficulty. The patient tolerated the procedure well. The quality of the bowel preparation was poor. Findings: Six sessile polyps were found in the ascending colon. The polyps were 4 to 6 mm in size. These polyps were removed with a cold snare. Resection and retrieval were complete. Two sessile polyps were found in the descending colon. The polyps were 4 to 7 mm in size. These polyps were removed with a cold snare. Resection and retrieval were complete. Multiple small-mouthed diverticula were found in the sigmoid colon. Internal hemorrhoids were found during retroflexion. There was evidence of a prior end-to-side colo-colonic anastomosis in the sigmoid colon. This was patent and was characterized by healthy appearing mucosa. Green stool in colon, no signs of GI bleeding Impression: - Preparation of the colon was poor. - Six 4 to 6 mm polyps in the ascending colon, removed with a cold snare. Resected and retrieved. - Two 4 to 7 mm polyps in the descending colon, removed with a cold snare. Resected and retrieved. - Diverticulosis in the sigmoid colon. - Internal hemorrhoids. - Patent end-to-side colo-colonic anastomosis, characterized by healthy appearing mucosa. Recommendation: - [facility] possible discharge same day. - Repeat colonoscopy at next available appointment (within 3 months) because the bowel preparation was poor and for surveillance. - Patient has a contact number available for emergencies. The signs and symptoms of potential delayed complications were discussed with the patient. Return to normal activities tomorrow. Written discharge instructions were provided to the patient. Emmanuel Salazar MD 11/09/2022 8:55:13 AM This report has been signed electronically. Note Initiated On: 11/09/2022 8:14 AM Number of Addenda: 0 I attest to the content of the Intraoperative Record and orders documented therein, exceptions below {[id number]}
--- NOTE | 2022-11-09 09:18 | Anesthesiology Progress Note ---
Date of Service November 09, 2022 Anesthesia Post Procedure Vital Signs Vital Signs: Temp Pulse Pulse Resp BP BP Pulse Ox 11/09/22 07:25 11/09/22 09:05 56 L 16 167/79 H 93 11/09/22 08:50 68 16 109/64 96 11/09/22 08:14 36.3 C L 56 L 16 158/79 H 95 11/09/22 07:47 36.7 C 56 L 20 135/72 93 11/09/22 07:28 37 C 68 16 116/77 95 11/09/22 03:09 36.5 C 54 L 18 129/64 95 11/08/22 23:49 36.7 C 60 18 151/77 H 93 11/08/22 23:44 65 11/08/22 19:30 11/08/22 19:20 36.6 C 67 16 108/60 94 11/08/22 14:34 58 L 11/08/22 15:04 37.1 C 59 L 16 135/79 95 11/08/22 14:00 37 C 59 L 18 135/75 96 11/08/22 11:15 36.6 C 65 16 199/104 H 92 O2 Del Method 11/09/22 07:25 Room Air 11/09/22 09:05 Room Air 11/09/22 08:50 Room Air 11/09/22 08:14 Room Air 11/09/22 07:47 Room Air 11/09/22 07:28 Room Air 11/09/22 03:09 Room Air 11/08/22 23:49 Room Air 11/08/22 23:44 11/08/22 19:30 Room Air 11/08/22 19:20 Room Air 11/08/22 14:34 11/08/22 15:04 Room Air 11/08/22 14:00 Room Air 11/08/22 11:15 Room Air Pain Intensity Right Lower Abdomen: Pain Intensity: 4 Left Shoulder: Pain Intensity: 6 Transfer of Care Handoff Completed per policy Notes Mental Status: alert / awake / arousable Patient Amnestic to Procedure: Yes Nausea / Vomiting: adequately controlled Pain: adequately controlled Airway Patency, RR, SpO2: stable & adequate BP & HR: stable & adequate Hydration State: stable & adequate Anesthetic Complications: no major complications apparent
[2022-11-09] MEDS: PANTOprazole 40 MG TAB PO SCH (10:54)
--- NOTE | 2022-11-09 11:37 | Hospitalist Progress Note ---
Date of Service November 09, 2022 Assessment & Plan (1) GI bleed: Plan: Presented with LLQ pain and several bloody/black bowel movements. Did have some Pepto for abdominal symptoms in the days leading up to hospitalization. Hemoccult pos in ER. BUN normal. Hgb 14.8 -> 12.5 and stable from previous Hx colon cancer x/p resection in 1994 and 2015; due for colonoscopy at this time given GI history. Started on PPI gtt given stools were reported as black which may have been from taking Pepto at home. Gastroenterology consult appreciated-s/p EGD and colonoscopy on 11/17 which revealed duodenitis, multiple polyps but no active bleeding. Poor prep for the colonoscopy -GI recommends repeat colonoscopy within 3 months given history of colon cancer and poor prep -Follow-up on pathology from polyps after discharge -Convert Protonix drip to p.o. PPI once daily for duodenitis -It is unclear of bleeding source but perhaps from the duodenitis? -Slowly advance diet to low fiber-give full liquids today -Follow CBC in the morning (2) Benign essential hypertension: Plan: History of, but not on medications at home. Blood pressures here are mildly elevated Defer any BP meds at this time especially in the setting of GIB, follow up PCP. (3) Abdominal pain, LLQ (left lower quadrant): Plan: Suspected to be secondary to duodenitis. Pain is more in the mid to periumbilical region CTAP without contrast without acute findings, but suboptimal study. 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 Hx CKD III with baseline creatinine ~1.3, at baseline this admission to date. Urinalysis this admission with trace blood but 0-4 RBCs -Continue follow-up with urology as an outpatient Creatinine mildly elevated today to 1.4 but also completed bowel prep last night may be mildly dehydrated Follow BMP in the morning (5) Single kidney: Plan: See above (6) Hematuria: Plan: Microscopic Urology follow up will be needed on discharge as described above (7) Upper back pain on left side: Plan: Tender to palpation on examination Much likely muscular skeletal Start lidocaine patch (8) Rash: Plan: Appears to be eczematous Start triamcinolone cream Follow-up with PCP after discharge (9) Prediabetes: Plan: Most recent hemoglobin A1c 5.8% No need for Accu-Cheks or NovoLog Plan DVT prophylaxis-SCDs only. Does have an IVC filter in place for previous DVT when he had colectomy and nephrectomy Disposition-continued stay, slowly advance diet, likely discharge home tomorrow. No ambulatory dysfunction. No home needs identified. Admission and Anticipated Discharge Date Admission Date: November 06, 2022 Anticipated date of discharge: 11/10/22 Subjective Patient had EGD and colonoscopy today. He was still having dark stools and the bowel prep before he went down for the colonoscopy. He is still having some mid abdominal cramping pains. He also woke up this morning with having some muscle spasms in his left upper back that have persisted throughout the day. He also has an itchy rash on his mid back. Telemetry with normal sinus rhythm with rates in the 50s to 80s Review of Systems Review of Systems: All systems reviewed & are unremarkable except as noted in HPI & below Physical Exam Constitutional: WD/WN, vitals as above Respiratory: normal respiratory effort, lungs clear to auscultation Cardiovascular: RRR, no murmur, no edema Gastrointestinal (Abdomen): Inspection/Auscultation: abdomen normal to inspection and normal bowel sounds; abdomen not distended Percussion/Palpation: + abdomen tender (Mild in mid abdomen, no guarding or rebound) and abdomen soft; no abdominal mass Skin: + rash (Patch of hyperpigmented scaly skin mid back) Psychiatric: A+Ox3, euthymic affect Results & Data Results & Data ([facility]) Vital Signs (Past 12 Hours) Vital Signs Temp Pulse Pulse Resp BP BP Pulse Ox 11/09/22 11:18 36.4 C L 58 L 20 143/80 H 94 11/09/22 09:56 36.4 C L 72 18 172/93 H 174/98 H 97 11/09/22 09:20 52 L 16 146/78 H 94 11/09/22 07:25 11/09/22 09:05 56 L 16 167/79 H 93 11/09/22 08:50 68 16 109/64 96 11/09/22 08:14 36.3 C L 56 L 16 158/79 H 95 11/09/22 07:47 36.7 C 56 L 20 135/72 93 11/09/22 07:28 37 C 68 16 116/77 95 11/09/22 03:09 36.5 C 54 L 18 129/64 95 11/08/22 23:49 36.7 C 60 18 151/77 H 93 11/08/22 23:44 65 O2 Del Method 11/09/22 11:18 Room Air 11/09/22 09:56 Room Air 11/09/22 09:20 Room Air 11/09/22 07:25 Room Air 11/09/22 09:05 Room Air 11/09/22 08:50 Room Air 11/09/22 08:14 Room Air 11/09/22 07:47 Room Air 11/09/22 07:28 Room Air 11/09/22 03:09 Room Air 11/08/22 23:49 Room Air 11/08/22 23:44 Laboratory Results CBC and BMP reviewed PG Care Time/CCT Total # of Minutes Spent Total Time Spent with Patient: Total time spent is greater than 50% in coordination of care (as documented) at patient's floor/unit and/or counseling patient: Coding Level of Care Code 19937 SUB INP/OBS CARE 2/35MIN Diagnoses GI bleed K92.2 Benign essential hypertension I10 Abdominal pain, LLQ (left lower quadrant) R10.32 Chronic kidney disease, stage III (moderate) N18.3 Single kidney Z90.5 Hematuria R31.9 Upper back pain on left side M54.9 Rash R21 Prediabetes R73.03
[2022-11-09] MEDS: TRIAMCINOLONE ACET 0.1% CR 80 GM TUBE EXT SCH ×2 (12:04→21:06)
[2022-11-09] MEDS: LIDOCAINE 5% 1 PATCH TD SCH (12:05)
[2022-11-09] MEDS ORDERED: PHENYLEPHRINE HCL 10 MG/ML VIAL ONE (16:35)
[2022-11-10] MEDS: ACETAMINOPHEN 500 MG TAB PO SCH ×4 (00:54→22:46)
[2022-11-10] MEDS: MELATONIN 3 MG TAB PO PRN (02:19)
[2022-11-10] MEDS: TRIAMCINOLONE ACET 0.1% CR 80 GM TUBE EXT SCH ×2 (08:22→20:01)
[2022-11-10] MEDS: PANTOprazole 40 MG TAB PO SCH (08:24)
[2022-11-10] MEDS: LIDOCAINE 5% 1 PATCH TD SCH ×2 (08:24→11:22)
[2022-11-10 09:28] LABS: Basophils # (auto) 0.06 K/uL (0-0.2); Eosinophils # (auto) 0.22 K/uL (0-0.50); Eosinophils % (auto) 3.7 %; Hematocrit (blood only) 41.3 % (42.0-52.0); Hemoglobin 14.5 g/dl (14.0-18.0); Immature Granulocytes # (auto) 0.03 K/uL (0.01-0.20); Immature Granulocytes % (auto) 0.5 %; Lymphocytes # (auto) 1.85 K/uL (1.2-3.4); Lymphocytes % (auto) 31.1 %; Mean Corpuscular Hemoglobin 32.4 pg (25.0-34.0); Mean Corpuscular Hgb Conc 35.1 g/dL (32.0-36.0); Mean Corpuscular Volume 92.4 fL (80.0-100.0); Mean Platelet Volume 9.7 fL (9.4-12.4); Monocytes % (auto) 8.4 %; Neutrophils # (auto) 3.28 K/uL (1.40-6.50); Neutrophils % (auto) 55.3 %; Platelet Count 186 K/uL (130-400); RDW Coefficient of Variation 12.5 % (11.5-14.5); RDW Standard Deviation 42.5 fL (36.4-46.3); Red Blood Count 4.47 M/uL (4.70-6.10); White Blood Count 5.94 K/ul (4.8-10.8)
[2022-11-10 10:08] LABS: BUN Creatinine Ratio 7.9 (10-20); Calcium 9.7 mg/dl (8.5-10.1); Creatinine Clr Calc Pharmacy 48.9 ml/min; Est GFR (African American) 49.1 ml/min; Est GFR (Non-African American) 42.3 ml/min; Potassium 3.9 mmol/L (3.5-5.1)
[2022-11-10] MEDS ORDERED: LACTATED RINGER'S 1,000 ML IV SCH (11:15)
[2022-11-10] MEDS ORDERED: CYCLOBENZAPRINE HCL 10 MG TAB PO PRN (13:56)
--- NOTE | 2022-11-10 13:56 | Hospitalist Progress Note ---
Date of Service November 10, 2022 Assessment & Plan (1) GI bleed: Plan: Presented with LLQ pain and several bloody/black bowel movements. Did have some Pepto for abdominal symptoms in the days leading up to hospitalization. Hemoccult pos in ER. BUN normal. Hgb 14.8 -> 12.5 and now back up to 14.5-likely some dilutional component Hx colon cancer x/p resection in 1994 and 2015; due for colonoscopy at this time given GI history. Started on PPI gtt given stools were reported as black which may have been from taking Pepto at home. Gastroenterology consult appreciated-s/p EGD and colonoscopy on 11/17 which revealed duodenitis, multiple polyps but no active bleeding. Poor prep for the colonoscopy -GI recommends repeat colonoscopy within 3 months given history of colon cancer and poor prep -Follow-up on pathology from polyps after discharge -Converted Protonix drip to p.o. PPI once daily for duodenitis -It is unclear of bleeding source but perhaps from the duodenitis? 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 Hx CKD III with baseline creatinine ~1.3, at baseline this admission to date. Now with acute kidney injury in the setting of CKD stage III Creatinine is now up to 1.6 Likely secondary to dehydration from bowel prep? Urinalysis this admission with trace blood but 0-4 RBCs -Give 1 L of LR today -Follow BMP this evening and again in the morning -Follow urine output -Continue follow-up with urology as an outpatient (3) Benign essential hypertension: Plan: History of, but not on medications at home. Blood pressures here are mildly elevated Defer any BP meds at this time especially in the setting of GIB, follow up PCP. (4) Abdominal pain, LLQ (left lower quadrant): Plan: Suspected to be secondary to duodenitis. Pain is more in the mid to periumbilical region CTAP without contrast without acute findings, but suboptimal study. Pain is now improving Continue scheduled Tylenol Continue PPI (5) Single kidney: Plan: See above (6) Hematuria: Plan: Microscopic Urology follow up will be needed on discharge as described above (7) Upper back pain on left side: Plan: Tender to palpation on examination in the left upper mid back Persisting today, worse with turning head to the left Much likely musculoskeletal -Continue lidocaine patch -Start cyclobenzaprine 10 Mg p.o. 3 times daily as needed muscle spasm (8) Rash: Plan: Appears to be eczematous Start triamcinolone cream Follow-up with PCP after discharge (9) Prediabetes: Plan: Most recent hemoglobin A1c 5.8% No need for Accu-Cheks or NovoLog Plan DVT prophylaxis-SCDs only. Does have an IVC filter in place for previous DVT when he had colectomy and nephrectomy Disposition-continued stay due to acute kidney injury. Otherwise no ambulatory dysfunction. No home needs identified. Hopefully discharge to home tomorrow if renal function improving Admission and Anticipated Discharge Date Admission Date: November 09, 2022 Subjective Patient reports feeling fine today. He is having some loose bowel movements but no blood. He is tolerating regular food. He is making urine. Review of Systems Review of Systems: All systems reviewed & are unremarkable except as noted in HPI & below Physical Exam Constitutional: WD/WN, vitals as above Respiratory: normal respiratory effort, lungs clear to auscultation Cardiovascular: RRR, no murmur, no edema Gastrointestinal (Abdomen): normal bowel sounds, soft, nontender, no hepatosplenomegaly Skin: + rash (Patch of hyperpigmented scaly skin mid back) Psychiatric: A+Ox3, euthymic affect Results & Data Results & Data ([facility]) Vital Signs (Past 12 Hours) Vital Signs Temp Pulse Resp BP Pulse Ox O2 Del Method 11/10/22 11:07 36.7 C 60 16 111/59 L 94 Room Air 11/10/22 07:42 36.4 C L 60 16 161/88 H 95 Room Air Laboratory Results CBC and BMP reviewed PG Care Time/CCT Total # of Minutes Spent Total Time Spent with Patient: Total time spent is greater than 50% in coordination of care (as documented) at patient's floor/unit and/or counseling patient: Coding Level of Care Code 74627 SUB INP/OBS CARE 2/35MIN Diagnoses GI bleed K92.2 Chronic kidney disease, stage III (moderate) N18.3 Benign essential hypertension I10 Abdominal pain, LLQ (left lower quadrant) R10.32 Single kidney Z90.5 Hematuria R31.9 Upper back pain on left side M54.9 Rash R21 Prediabetes R73.03
[2022-11-10 18:26] LABS: BUN Creatinine Ratio 10.8 (10-20); Calcium 9.7 mg/dl (8.5-10.1); Creatinine Clr Calc Pharmacy 48.3 ml/min; Est GFR (African American) 48.4 ml/min; Est GFR (Non-African American) 41.7 ml/min; Potassium 4.2 mmol/L (3.5-5.1)
[2022-11-10] MEDS: HEPARIN 100 UNIT/ML 5ML FLUSH FLUSH PRN (21:30)
[2022-11-11] MEDS: MELATONIN 3 MG TAB PO PRN (00:14)
[2022-11-11] MEDS: HEPARIN 100 UNIT/ML 5ML FLUSH FLUSH PRN (06:06)
[2022-11-11 07:03] LABS: Basophils # (auto) 0.05 K/uL (0-0.2); Basophils % (auto) 0.9 %; Eosinophils # (auto) 0.21 K/uL (0-0.50); Eosinophils % (auto) 3.8 %; Hematocrit (blood only) 37.7 % (42.0-52.0); Hemoglobin 13.3 g/dl (14.0-18.0); Immature Granulocytes # (auto) 0.02 K/uL (0.01-0.20); Immature Granulocytes % (auto) 0.4 %; Lymphocytes % (auto) 28.8 %; Mean Corpuscular Hemoglobin 32.7 pg (25.0-34.0); Mean Corpuscular Hgb Conc 35.3 g/dL (32.0-36.0); Mean Corpuscular Volume 92.6 fL (80.0-100.0); Mean Platelet Volume 9.6 fL (9.4-12.4); Monocytes # (auto) 0.55 K/uL (0.11-0.59); Monocytes % (auto) 9.9 %; Neutrophils # (auto) 3.12 K/uL (1.40-6.50); Neutrophils % (auto) 56.2 %; Platelet Count 164 K/uL (130-400); RDW Coefficient of Variation 12.4 % (11.5-14.5); RDW Standard Deviation 41.8 fL (36.4-46.3); Red Blood Count 4.07 M/uL (4.70-6.10); White Blood Count 5.55 K/ul (4.8-10.8)
[2022-11-11 07:19] LABS: Calcium 9.3 mg/dl (8.5-10.1); Creatinine Clr Calc Pharmacy 48.3 ml/min; Est GFR (African American) 48.4 ml/min; Est GFR (Non-African American) 41.7 ml/min; Potassium 3.8 mmol/L (3.5-5.1)
[2022-11-11] MEDS: TRIAMCINOLONE ACET 0.1% CR 80 GM TUBE EXT SCH (08:21)
[2022-11-11] MEDS: ACETAMINOPHEN 500 MG TAB PO SCH (08:21)
[2022-11-11] MEDS: PANTOprazole 40 MG TAB PO SCH (08:21)
[2022-11-11] MEDS: LIDOCAINE 5% 1 PATCH TD SCH (08:22)
[2022-11-11] MEDS ORDERED: SODIUM CHLORIDE 0.9% 500 ML IV SCH (08:30)
[2022-11-11 11:53] LABS: BUN Creatinine Ratio 11.7 (10-20); Est GFR (African American) 52.9 ml/min; Est GFR (Non-African American) 45.7 ml/min; Potassium 3.8 mmol/L (3.5-5.1)
--- NOTE | 2022-11-11 12:29 | Discharge Summary ---
Date of Service November 11, 2022 Admission HPI Per Admitting Provider 66yo male PMHx colon cancer s/p 2 colon resections, colonic polyps, single kidney s/p nephrectomy, HTN, and insomnia presented with left lower quadrant abdominal pain. Pain started yesterday afternoon and was subsequently followed by BM with diarrhea that was black with blood in it. Had associated nausea, dizziness, lightheadedness. Afterwards tried taking advil and peptol bismol which gave minimal relief. Abd pain migrated more diffusely. Had another BM this morning which was similar to yesterdays. Loss of appetite and has not eaten since yesterday. Denies headache, fevers, chills, diaphoresis, visual changes, neck pain, chest pain, breathing difficulties, vomiting, hematemesis, back pain, urinary symptoms, numbness, weakness, lymphadenopathy, rash, or other complaints. Of note his last colon resection was around 2016. Colonoscopy in 2019 showed polyps which were resected. He was to be due for another colonoscopy around this time. Principal Diagnosis GI Bleed, duodenitis IRINA Discharge Exam Constitutional WD/WN, vitals as above Respiratory normal respiratory effort, lungs clear to auscultation Cardiovascular RRR, no murmur, no edema Gastrointestinal (Abdomen) normal bowel sounds, soft, nontender, no hepatosplenomegaly Skin + rash (Patch of hyperpigmented scaly skin mid back) Psychiatric A+Ox3, euthymic affect Discharge Data Allergies Allergy/AdvReac Type Severity Reaction Status Date / Time No Known Allergies Allergy Verified 08/12/22 13:31 Consultations 11/06/22 21:12 ED Decision to Admit Stat 11/07/22 02:31 Consult Gastroenterology Routine 11/08/22 16:05 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 Did have some Pepto for abdominal symptoms in the days leading up to hospitalization. Hemoccult pos in ER. BUN normal. Hgb 14.8 -> 12.5 and now back up to 13-likely some dilutional component initially Hx colon cancer x/p resection in 1994 and 2015; due for colonoscopy at this time given GI history. Started on PPI gtt given stools were reported as black which may have been from taking Pepto at home. Gastroenterology consult appreciated-s/p EGD and colonoscopy on 11/17 which reve aled duodenitis, multiple polyps but no active bleeding. Poor prep for the colonoscopy -GI recommends repeat colonoscopy within 3 months given history of colon cancer and poor prep -pathology from polyps are tubular adenomas and duodenitis and gastritis but negative for H. pylori -Converted Protonix drip to p.o. PPI once daily for duodenitis-would continue for 2 months -It is unclear of bleeding source but perhaps from the duodenitis? 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 Hx CKD III with baseline creatinine ~1.3, at baseline this admission to date. Now with acute kidney injury in the setting of CKD stage III Creatinine up to 1.6 and now down to 1.5 after IVF hydration Likely secondary to dehydration from bowel prep? Urinalysis this admission with trace blood but 0-4 RBCs -Follow BMP as an outpt in 1 week with PCP -Continue follow-up with urology as an outpatient and repeat UA to see if microscopic hematuria resolved (3) Benign essential hypertension: History of, but not on medications at home. Blood pressures here are mildly elevated Defer any BP meds at this time especially in the setting of GIB, follow up PCP. (4) Abdominal pain, LLQ (left lower quadrant): Suspected to be secondary to duodenitis. Pain is more in the mid to periumbilical region CTAP without contrast without acute findings, but suboptimal study. Pain is now resolved received scheduled Tylenol Continue PPI (5) Single kidney: See above (6) Hematuria: Microscopic Urology follow up will be needed on discharge as described above (7) Upper back pain on left side: Tender to palpation on examination in the left upper mid back, worse with turning head to the left likely musculoskeletal improving with flexeril now -cont cyclobenzaprine 10 Mg p.o. 3 times daily as needed for muscle spasm (8) Rash: Appears to be eczematous Started triamcinolone cream Follow-up with PCP after discharge (9) Prediabetes: Most recent hemoglobin A1c 5.8% No need for Accu-Cheks or NovoLog Plan DVT prophylaxis-SCDs only. Does have an IVC filter in place for previous DVT when he had colectomy and nephrectomy Disposition-dc to home today, much improved Total Time Total Time Spent Total Time Spent (In Minutes): 35 min Discharge Plan Discharge Items Patient Disposition: Home - Self-Care Reason For Visit: GI BLEED Discharge Diagnosis: GI Bleed, Duodenitis, Acute kidney injury Activity: Resume your previous activity Non-emergency contact: Primary Care Provider Call non-emergency contact if: you have any medication questions and your symp toms worsen Follow-up/Referrals: Hortencia Woodruff MD [Primary Care Provider] - 11/18/22 12:45 pm (APPOINTMENT WITH DR MARIE) Emmanuel Salazar MD [Physician] - (Please keep your follow up appointment for the colonoscopy as scheduled in March.) Diet: Heart Healthy Addtl Attending Provider Instructions: You were admitted for GI bleeding and fortunately you did not lose a significant amount of blood. You had an EGD which showed inflammation of the small intestine (duodenitis) and you should continue taking Protonix for this for the next 2 months. You will need a repeat colonoscopy in 3-4 months due to a poor prep. You had some worsening of your kidney function here probably from dehydration from the bowel prep. This improved with IV fluids. Please try to stay hydrated with oral fluids when you go home and have your kidney function retested next week when you see your PCP. You did have some microscopic blood in your urine. Please have your PCP repeat your urine test in a few weeks and if this persists, you should follow up with your Urologist. You can take the cyclobenzaprine as needed for the muscle spasms in your upper back. Pending Studies at Discharge: No Stand-Alone Forms: My [employer], Smoking Cessation Medications and DC Order Prescriptions: New cyclobenzaprine 10 mg Tablet 10 mg PO Q8H PRN (Reason: back spasm) Qty: 20 0RF pantoprazole 40 mg Tablet,Delayed Release (Dr/Ec) 40 mg PO QAM Qty: 30 1RF Continued zolpidem 10 mg tablet 10 mg PO HS Qty: 30 0RF Rx Instructions: PDMP searched, last filled on 12/24/21 for 30 days, okay to fill sildenafil 100 mg tablet 100 mg PO DAILY PRN (Reason: sexual activity) Qty: 10 6RF Rx Instructions: administer 30 minutes to 4 hours before activity triamcinolone acetonide 0.1 % cream 1 applic topical BID PRN (Reason: rash) Qty: 15 0RF Discharge Orders: Discharge Order (Routine); Ordered 11/11/22 Ordered By: Nettie Uriostegui Admission Data Admit Date/Time: 11/09/22 11:32 Attending Provider: Nettie Uriostegui Admit Provider: Bernardo Zamudio Primary Care Provider: Hortencia Woodruff Other Providers: Foster Hutchinson ; Kierra Warren Jr Other Interventions: Discharge Summary Assessment (RN) Last Done: 11/11/22 12:27 Coding Level of Care Code HOSP INP/OBS DISCH >30 MIN Diagnoses GI bleed K92.2 Chronic kidney disease, stage III (moderate) N18.3 Benign essential hypertension I10 Abdominal pain, LLQ (left lower quadrant) R10.32 Single kidney Z90.5 Hematuria R31.9 Upper back pain on left side M54.9 Rash R21 Prediabetes R73.03
== END 2022-11-11 13:00 | disposition home or self-care (01) | DRG 392 ==
LOC: ED 15:10 → 2N 15:10 → SUATTDRO 22:45 → 2N 11-07 02:08 → 3W 11-10 01:53